=== PATIENT | male | born 1955 | race Asian ===

== ENCOUNTER 2017-12-19 02:50 | Emergency (ER) | payer OTHER ==
[~2017-12-19] VITALS: Ht 172.7 cm; Wt 66.2 kg
[~2017-12-19 02:50] MED LIST: CELLCEPT500 MG ORAL; NEORAL100 MG PO; PREDNISONE2.5 MG ORAL; UNOBMED
[2017-12-19 03:00] VITALS: BP 142/92
[2017-12-19 03:15] LABS: BASOPHILS % (AUTO) 0.5 % (0.0-2.0); EOSINOPHILS % (AUTO) 0.7 % (0.0-3.0); HEMATOCRIT 48.7 % (42.0-52.0); HEMOGLOBIN 16.6 G/DL (14.2-18.0); LYMPHOCYTES % (AUTO) 14.2 % (20.0-45.0); MEAN CORPUSCULAR VOLUME 94 FL (80-99); NEUTROPHILS % (AUTO) 78.5 % (45.0-75.0); PLATELET COUNT 170 K/UL (150-450); RED BLOOD COUNT 5.19 M/UL (4.70-6.10); RED CELL DISTRIBUTION WIDTH 11.8 % (11.6-14.8); WHITE BLOOD COUNT 9.1 K/UL (4.8-10.8)
[2017-12-19] MEDS ORDERED: Heparin 5000 units/ml inj IV ONE (03:15)
[2017-12-19] MEDS ORDERED: Heparin 25,000u/D5W 500ml 500 ML IV SCH (03:15)
--- NOTE | 2017-12-19 03:16 | Emergency Room Report ---
History of Present Illness General Chief Complaint: Chest Pain Source: Patient, Family Member, Medical Record Present Illness HPI This is 62-year-old Welsh speaking male. History is through Welsh speaking nurse. Patient presents with chief point of chest pain. Since this morning his been complaining of chest pain on and off. The worse chest pain started around 11 PM. He said he was diaphoretic and short of breath. Worse with lying flat and worse with exertion. Better with rest. Pain did not go away so he called 911. pain was 8 out of 10. No radiation. No nausea. EMS gave him nitroglycerin and aspirin. He is pain-free now. He has a history of CVA with left-sided weakness. Also history of renal failure status post renal transplant about 15 years ago. Allergies: Coded Allergies: No Known Allergies (Unverified , 03/26/16) Patient History Past Medical History: see triage record, old chart reviewed, HTN, renal disease Past Surgical History: other Pertinent Family History: none Social History: Denies: smoking Immunizations: other Reviewed Nursing Documentation: PMH: Agreed; PSxH: Agreed Nursing Documentation-PMH Hx Hypertension: Yes Hx Cancer: No Hx Gastrointestinal Problems: No Hx Dialysis: No - bilat kidney transp (15yrs ago) Hx Cerebrovascular Accident: Yes - stroke Review of Systems Eye: Denies: eye pain, blurred vision ENT: Denies: ear pain, nose congestion, throat swelling Respiratory: Denies: cough, shortness of breath Cardiovascular: Reports: chest pain; Denies: palpitations Gastrointestinal: Denies: abdominal pain, diarrhea, nausea, vomiting Musculoskeletal: Denies: back pain, joint pain Skin: Denies: rash Neurological: Denies: headache, numbness Endocrine: Denies: increased thirst, increased urine Hematologic/Lymphatic: Denies: easy bruising All Other Systems: negative except mentioned in HPI Physical Exam Vital Signs Date Time Temp Pulse Resp B/P (MAP) Pulse Ox O2 Delivery O2 Flow Rate FiO2 12/19/17 02:53 97.8 68 18 142/92 98 Room Air 97.9 vitals with high blood pressure Sp02 EP Interpretation: reviewed, normal General Appearance: well appearing, no apparent distress, alert Head: normocephalic, atraumatic Eyes: bilateral eye PERRL, bilateral eye EOMI ENT: hearing grossly normal, normal pharynx Neck: full range of motion, supple, no meningismus Respiratory: chest non-tender, lungs clear, normal breath sounds Cardiovascular #1: regular rate, rhythm, no murmur Gastrointestinal: normal bowel sounds, non tender, no mass, no organomegaly, no bruit, non-distended Musculoskeletal: back normal, normal range of motion Neurologic: alert, oriented x3, other - left sided weakness from previous cva Psychiatric: mood/affect normal Skin: warm/dry Procedures Critical Care Time Critical Care Time Critical care is mandated in this patient who presented with STEMI. Patient require my urgent intervention to attenuate the risks of metabolic collapse which may lead to cardiovascular collapse and . Critical care time is 35 minutes excluding any reportable procedure. Critical care time included evaluation, multiple reevaluation, looking at old charts, interpreting laboratory and diagnostic data, discussing case with patient and family and consultants, and charting. Medical Decision Making Diagnostic Impression: Primary Impression: STEMI (ST elevation myocardial infarction) Qualified Codes: I21.09 - ST elevation (STEMI) myocardial infarction involving other coronary artery of anterior wall ER Course Patient present with chest pain and has a STEMI of the anterior wall with recent physical changes. He is pain-free now. I discussed the case with Dr. Sabillon, chairman & co founder at [facility]. He accepted patient for transfer as a STEMI transfer. He agreed that no need for nitroglycerin since patient is pain-free. Agree with heparin bolus and heparin drip. Once Plavix 600 mg by mouth. Also wanted a full dose aspirin in total. We will transfer to [facility] for higher level of care. Family is agreeable. EKG Diagnostic Results Rate: normal Rhythm: NSR ST Segments: other - ST elevation anteriorly with inferior reciprocal changes. ASA given to the pt in ED: Yes Rhythm Strip Diag. Results Rhythm Strip Time: 03:32 EP Interpretation: yes Rate: 62 Rhythm: NSR, no PVC's, no ectopy Chest X-Ray Diagnostic Results Chest X-Ray Diagnostic Results : Chest X-Ray Ordered: Yes # of Views/Limited/Complete: 1 View Indication: Chest Pain EP Interpretation: Yes Interpretation: no consolidation, no effusion, no pneumothorax, no acute cardiopulmonary disease Impression: No acute disease Electronically Signed by: French Pittman MD Last Vital Signs Date Time Temp Pulse Resp B/P (MAP) Pulse Ox O2 Delivery O2 Flow Rate FiO2 4/20/18 02:53 97.8 68 18 142/92 98 Room Air 97.9 Status: improved Disposition: XFER SHT-TRM HOSP Condition: Serious Referrals: [facility],REFERRING (PCP) FRENCH PITTMAN M.D. Dec 19, 2017 03:16
[2017-12-19 03:27] LABS: ANION GAP 7 mmol/L (5-15); BLOOD UREA NITROGEN 16 mg/dL (7-18); CALCIUM 8.7 MG/DL (8.5-10.1); CARBON DIOXIDE 25 MMOL/L (21-32); CHLORIDE 104 MMOL/L (98-107); POTASSIUM 3.5 MMOL/L (3.5-5.1); SODIUM 136 MMOL/L (136-145)
[2017-12-19] MEDS ORDERED: Aspirin Baby 81mg ONE (03:34)
[2017-12-19 03:38] VITALS: BP 113/85
[2017-12-19 03:42] LABS: ALANINE AMINOTRANSFERASE 55 U/L (12-78); ALBUMIN 3.6 G/DL (3.4-5.0); ALBUMIN/GLOBULIN RATIO 0.9 (1.0-2.7); ALKALINE PHOSPHATASE 76 U/L (46-116); ASPARTATE AMINO TRANSFERASE 28 U/L (15-37); BILIRUBIN,TOTAL 0.4 MG/DL (0.2-1.0); CKMB 3.5 NG/ML (0.0-3.6); CREATINE KINASE 65 U/L (26-308)
[2017-12-19] MEDS ORDERED: Aspirin Baby 81mg ORAL ONE (03:45)
[2017-12-19 03:50] VITALS: BP 113/85
--- NOTE | 2017-12-19 18:44 | Diagnostic Imaging Report ---
Indication: Chest pain Technique: XRAY Chest 1v Comparison: 03/29/2016 Findings: Stable cardiomegaly. Atherosclerotic calcifications again noted in the aortic arch. Mediastinal contours are sharp. There is unchanged elevation of the right hemidiaphragm. There is no focal airspace consolidation, pleural effusion or pneumothorax. No acute osseous abnormality seen. Impression: No radiographic evidence of acute cardiopulmonary disease. Stable cardiomegaly.
== END 2017-12-19 03:50 | disposition short-term general hospital (02) ==
LOC: EDBD 02:50 → EMR 03:00
DX: I21.3 ST elevation (STEMI) myocardial infarction of unspecified site (principal); I10 Essential (primary) hypertension; Z86.73 Personal history of transient ischemic attack (TIA), and cerebral infarction without residual deficits
CPT/HCPCS: 36415; 71045; 80053; 82550; 82553; 83880; 84484; 85025; 85610; 85730; 93005; 96374; 96375; 99291; J1644

== ENCOUNTER 2018-11-01 03:47 | Inpatient (IN) | payer OTHER ==
[~2018-11-01] VITALS: Ht 170.2 cm; Wt 72.6 kg
[2018-11-01 03:47] VITALS: BP 124/73
--- NOTE | 2018-11-01 03:47 | NUR ---
ED Nurse Note: Pt was BIBA from home, c/o chest pain today, but pt pointed on upper abdomen, 02/08. Pt is A/O X 4. Hr 50. Pt had Hx of CVA with left side weakness. Pt has an old HD AV shunt on right forearm which was no longer used accoding to pt's family, pt states that had HX of kidney transplant. Skin intact. Pt's at bed side. waitng for orders.
[2018-11-01] MEDS ORDERED: Morphine Sulfate 2mg/ml Inj(IV/IM USE ONLY) IVP ONE (04:00)
--- NOTE | 2018-11-01 04:05 | NUR ---
ED Nurse Note: Blood sample collected and sent to lab.
[2018-11-01] MEDS ORDERED: AMIODARONE HCL200 MG ORAL (04:08)
[2018-11-01] MEDS ORDERED: MYCOPHENOLATE250 MG PO (04:08)
[2018-11-01] MEDS ORDERED: ASPIR 8181 MG ORAL (04:08)
[2018-11-01] MEDS ORDERED: ELIQUIS5 MG PO (04:08)
[2018-11-01] MEDS ORDERED: DIPHENOXYLATE-1 EACH PO (04:08)
[2018-11-01] MEDS ORDERED: CARVEDILOL6.25 MG ORAL (04:08)
[2018-11-01] MEDS ORDERED: CRESTOR10 M2 ORAL (04:08)
[2018-11-01] MEDS ORDERED: PREDNISOLO15 MG/5 M1 ORAL (04:08)
[2018-11-01] MEDS ORDERED: LISINOPRIL2.5 MG ORAL (04:08)
[2018-11-01] MEDS ORDERED: OMEPRAZOLE40 M1 ORAL (04:08)
[2018-11-01 04:27] LABS: HEMATOCRIT 44.5 % (42.0-52.0); HEMOGLOBIN 14.8 G/DL (14.2-18.0); MEAN CORPUSCULAR VOLUME 94 FL (80-99); PLATELET COUNT 183 K/UL (150-450); RED BLOOD COUNT 4.72 M/UL (4.70-6.10); RED CELL DISTRIBUTION WIDTH 12.1 % (11.6-14.8); WHITE BLOOD COUNT 9.3 K/UL (4.8-10.8)
--- NOTE | 2018-11-01 04:32 | NUR ---
ED Nurse Note: Meds given as ordered.
[2018-11-01 04:38] LABS: ANION GAP 7 mmol/L (5-15); BLOOD UREA NITROGEN 27 mg/dL (7-18); CALCIUM 8.8 MG/DL (8.5-10.1); CARBON DIOXIDE 30 MMOL/L (21-32); CHLORIDE 103 MMOL/L (98-107); CREATININE 1.2 MG/DL (0.55-1.30); POTASSIUM 4.1 MMOL/L (3.5-5.1); SODIUM 140 MMOL/L (136-145)
[2018-11-01 04:53] LABS: ALANINE AMINOTRANSFERASE 77 U/L (12-78); ALBUMIN 3.4 G/DL (3.4-5.0); ALBUMIN/GLOBULIN RATIO 0.9 (1.0-2.7); ALKALINE PHOSPHATASE 107 U/L (46-116); ASPARTATE AMINO TRANSFERASE 40 U/L (15-37); BILIRUBIN,TOTAL 1.4 MG/DL (0.2-1.0); CKMB 1.1 NG/ML (0.0-3.6); CREATINE KINASE 41 U/L (26-308)
--- NOTE | 2018-11-01 05:00 | Diagnostic Imaging Report ---
EXAM: XR Chest, 1 View CLINICAL HISTORY: CP TECHNIQUE: Frontal view of the chest. COMPARISON: Chest radiograph dated 12/19/17. FINDINGS: Lungs: Moderate elevation of the right hemidiaphragm with adjacent right basilar atelectasis. This is mildly more prominent than the previous exam. Pleural space: Unremarkable. No pneumothorax. Heart: Unremarkable. No cardiomegaly. Mediastinum: Unremarkable. Bones/joints: Unremarkable. Vasculature: Calcification of the aortic arch. IMPRESSION: 1. No radiographically evidence of acute cardiopulmonary disease. 2. Elevation right hemidiaphragm with adjacent right basilar atelectasis.
--- NOTE | 2018-11-01 05:10 | Emergency Room Report ---
History of Present Illness General Chief Complaint: Chest Pain Source: Patient, Family Member Present Illness HPI 62-year-old male presents ED for evaluation. Brought in by EMS complaining of chest pain. Patient is Yakut speaking. Patient states that patient's been having indigestion symptoms for the last few days but started tonight he started to have chest pain. Sharp, 7 out of 10, nonradiating. Was given aspirin and nitroglycerin by EMS with some improvement. Per patient had a kidney transplant several years ago. Is currently compliant with his medications. No longer receives dialysis. Denies alcohol or drug use. No other aggravating relieving factors. Denies any other associated symptoms Allergies: Coded Allergies: No Known Allergies (Unverified , 03/26/16) Patient History Past Medical History: HTN, [place], CVA/TIA, renal disease Past Surgical History: other - kidney transplant Pertinent Family History: none Social History: Denies: smoking, alcohol use, drug use Immunizations: UTD Reviewed Nursing Documentation: PMH: Agreed; PSxH: Agreed Nursing Documentation-PMH Hx Hypertension: Yes Hx Cancer: No Hx Gastrointestinal Problems: No Hx Dialysis: No - bilat kidney transp (15yrs ago) Hx Cerebrovascular Accident: Yes - stroke Review of Systems All Other Systems: negative except mentioned in HPI Physical Exam Vital Signs Date Time Temp Pulse Resp B/P (MAP) Pulse Ox O2 Delivery O2 Flow Rate FiO2 11/01/18 03:43 97.2 54 18 156/92 100 Room Air Sp02 EP Interpretation: reviewed, normal General Appearance: no apparent distress, alert, GCS 15, non-toxic Head: normocephalic, atraumatic Eyes: bilateral eye normal inspection, bilateral eye PERRL ENT: hearing grossly normal, normal pharynx, no angioedema, normal voice Neck: full range of motion, supple/symm/no masses Respiratory: chest non-tender, lungs clear, normal breath sounds, speaking full sentences Cardiovascular #1: regular rate, rhythm, no edema Cardiovascular #2: 2+ carotid (R), 2+ carotid (L), 2+ radial (R), 2+ radial (L) , 2+ dorsalis pedis (R), 2+ dorsalis pedis (L) Gastrointestinal: normal bowel sounds, non tender, soft, non-distended, no guarding, no rebound Rectal: deferred Genitourinary: normal inspection, no CVA tenderness Musculoskeletal: back normal, gait/station normal, normal range of motion, non- tender Neurologic: alert, oriented x3, responsive, motor strength/tone normal, sensory intact, speech normal Psychiatric: judgement/insight normal, memory normal, mood/affect normal, no suicidal/homicidal ideation Reflexes: 3+ bicep (R), 3+ bicep (L), 3+ tricep (R), 3+ tricep (L), 3+ knee (R) , 3+ knee (L) Skin: normal color, no rash, warm/dry, well hydrated Lymphatic: no adenopathy Medical Decision Making Diagnostic Impression: Primary Impression: ACS (acute coronary syndrome) Additional Impression: Renal transplant disorder ER Course Hospital Course 62-year-old male presents ED complaining of chest pain. h/o kidney transplant Differential diagnoses include: [place]/unstable angina, contusion, muscle strain, PTX, rib fracture Clinical course Patient placed on stretcher. on personnel monitor. After initial history and physical I ordered labs, EKG, chest x-ray, morphine labs reviewed- no leukocytosis, hb/hct stable, BUN/Cr 27/1.2, trop 0.002 EKG - NSR, no acute ischemic changes interpreted by me Chest x-ray- some atelectasis noted Given significant cardiac risk factors with presentation patient should be admitted for inpatient admission. However given history of kidney transplant patient will require transfer to appropriate facility with transplant services. I spoke to patient's log yard manager Dr David Cason who agrees patient should be transferred to [facility], or a facility with transplant services insurance unable to facilitate transfer. given normal creatinine, patient will be admitted here I. I feel this is a highly complex case requiring extensive working including EKG/Rhythm strip, Xray/CT/US, Blood/urine lab work, repeat exams while in ED, and administration of strong opiates/narcotics for pain control, admission to hospital or close patient follow up. Diagnosis - ACS, renal transplant disorder admitted to telemetry in serious condition Labs Test 11/01/18 04:17 White Blood Count 9.3 K/UL (4.8-10.8) Red Blood Count 4.72 M/UL (4.70-6.10) Hemoglobin 14.8 G/DL (14.2-18.0) Hematocrit 44.5 % (42.0-52.0) Mean Corpuscular Volume 94 FL (80-99) Mean Corpuscular Hemoglobin 31.4 PG (27.0-31.0) Mean Corpuscular Hemoglobin Concent 33.3 G/DL (32.0-36.0) Red Cell Distribution Width 12.1 % (11.6-14.8) Platelet Count 183 K/UL (150-450) Mean Platelet Volume 6.4 FL (6.5-10.1) Neutrophils (%) (Auto) % (45.0-75.0) Lymphocytes (%) (Auto) % (20.0-45.0) Monocytes (%) (Auto) % (1.0-10.0) Eosinophils (%) (Auto) % (0.0-3.0) Basophils (%) (Auto) % (0.0-2.0) Prothrombin Time 10.5 SEC (9.30-11.50) Prothromb Time International Ratio 1.0 (0.9-1.1) Activated Partial Thromboplast Time 30 SEC (23-33) Sodium Level 140 MMOL/L (136-145) Potassium Level 4.1 MMOL/L (3.5-5.1) Chloride Level 103 MMOL/L (98-107) Carbon Dioxide Level 30 MMOL/L (21-32) Anion Gap 7 mmol/L (5-15) Blood Urea Nitrogen 27 mg/dL (7-18) Creatinine 1.2 MG/DL (0.55-1.30) Estimat Glomerular Filtration Rate > 60 mL/min (>60) Glucose Level 183 MG/DL (74-106) Calcium Level 8.8 MG/DL (8.5-10.1) Total Bilirubin 1.4 MG/DL (0.2-1.0) Direct Bilirubin 1.0 MG/DL (0.0-0.3) Aspartate Amino Transf (AST/SGOT) 40 U/L (15-37) Alanine Aminotransferase (ALT/SGPT) 77 U/L (12-78) Alkaline Phosphatase 107 U/L (46-116) Total Creatine Kinase 41 U/L (26-308) Creatine Kinase MB 1.1 NG/ML (0.0-3.6) Creatine Kinase MB Relative Index 2.6 Troponin I 0.002 ng/mL (0.000-0.056) Pro-B-Type Natriuretic Peptide 142 pg/mL (0-125) Total Protein 7.2 G/DL (6.4-8.2) Albumin 3.4 G/DL (3.4-5.0) Globulin 3.8 g/dL Albumin/Globulin Ratio 0.9 (1.0-2.7) EKG Diagnostic Results Rate: normal Rhythm: NSR ST Segments: no acute changes ASA given to the pt in ED: No - given by ems Rhythm Strip Diag. Results EP Interpretation: yes Rhythm: NSR, no PVC's, no ectopy Chest X-Ray Diagnostic Results Chest X-Ray Diagnostic Results : Chest X-Ray Ordered: Yes # of Views/Limited/Complete: 1 View Indication: Chest Pain EP Interpretation: Yes Interpretation: no consolidation, no effusion, no pneumothorax, no acute cardiopulmonary disease Impression: No acute disease Electronically Signed by: Electronically signed by Jorge Ross MD Last Vital Signs Date Time Temp Pulse Resp B/P (MAP) Pulse Ox O2 Delivery O2 Flow Rate FiO2 11/01/18 03:47 51 18 Room Air 11/01/18 03:43 97.2 156/92 100 Status: improved Disposition: XFER SHT-TRM HOSP Condition: Serious Referrals: NON PHYSICIAN (PCP) Jorge Ross MD Nov 01, 2018 05:10
[2018-11-01] MEDS ORDERED: Aspirin Baby 81mg ORAL ONE (05:15)
--- NOTE | 2018-11-01 05:23 | NUR ---
Clinicals has been faxed over to [phone] and received @ [phone]
[2018-11-01 06:20] VITALS: BP 104/72
--- NOTE | 2018-11-01 06:35 | NUR ---
ED Nurse Note: Pt is waiting for transfer to [facility] for insurance reason. Pt is A/O X 4. VSS. Will continue to monitor.
[2018-11-01 07:10] VITALS: BP 114/72
--- NOTE | 2018-11-01 07:10 | NUR ---
HAND-OFF: Report given to Geno/RN for continue care. Breakfast/ Renal diet was ordered.
--- NOTE | 2018-11-01 07:11 | NUR ---
ED Nurse Note: pt. on bed resting with no s/s of acute distress noted. family at the bedside
--- NOTE | 2018-11-01 07:39 | NUR ---
ED Nurse Note: DR. CRISTELA NGUYEN AT THE BED SIDE SPEAKING TO THE PATIENT AND FAMILY MEMBER
--- NOTE | 2018-11-01 08:17 | NUR ---
ED Nurse Note: telephone report given to MARCIAL Wyatt
--- NOTE | 2018-11-01 08:47 | NUR ---
ED Nurse Note: pt. trasnported to Tele with no s/s of acute distress attached to cafeteria monitor. Endorsed to MARCIAL Awan the belongings list
[2018-11-01 08:50] VITALS: BP 132/82
--- NOTE | 2018-11-01 08:50 | NUR ---
NURSE NOTES: Received report from MARCIAL Lora. Patient transferred from ER to tele via gurney. Patient able to ambulate to bed with health care assistant. Left side weakness due to history of stroke. Patient on room air, AOX4, vital sign at the time of arrival 132/82, HR 52, T 96.8, 95%, 14, pain 3/10 on epigastric area. cafeteria monitor on, belonging list checked with RN, remained with patient. IV site on left FA 22G, asymptomatic, patent, intact. Per patient, AV shunt on right side has not been used for 15yrs after kidney transplant. Patient stated got bilateral kidney transplant about 15yrs ago. Bed in lowest position, side rails upx2, call light within reach. Will continue to monitor.
[2018-11-01] MEDS ORDERED: Albuterol/Ipratropium 3ml neb HHN PRN (09:15)
[2018-11-01] MEDS ORDERED: Enalaprilat 2.5mg/2ml Inj IV PRN (09:15)
[2018-11-01] MEDS ORDERED: Morphine Sulfate 2mg/ml Inj(IV/IM USE ONLY) IVP PRN (09:15)
[2018-11-01] MEDS ORDERED: Miralax 17gm pkt ORAL PRN (09:15)
[2018-11-01] MEDS ORDERED: dilTIAZem HCl 25mg/5ml Inj IV PRN (09:15)
[2018-11-01] MEDS ORDERED: Nitroglycerin Subl 0.4mg tab SL PRN (09:15)
[2018-11-01] MEDS ORDERED: Ketorolac 30mg Inj IV PRN (09:15)
--- NOTE | 2018-11-01 09:45 | History and Physical Report ---
DATE OF ADMISSION: 11/01/2018 TIME SEEN: 8 a.m. CONSULTANTS: 1. Bassam Hanks M.D. 2. Adrian Segura M.D. CHIEF COMPLAINT: Chest pain, shortness of breath, ACS. BRIEF HISTORY: This is a 62-year-old male, who lives at home, presents with chest pain, substernal, for three days, intermittent, slight shortness of breath. No loss of consciousness. No dizziness. The patient came to [facility], diagnosed with the above, and being admitted to telemetry for further care. Currently, calm in bed, in the ER. No complaint. REVIEW OF SYSTEMS: Slight chest pain. Slight shortness of breath. No nausea, vomiting, or diarrhea. PAST MEDICAL HISTORY: Includes history of diabetes. PAST SURGICAL HISTORY: None. ALLERGIES: Denies. MEDICATIONS: Include aspirin and morphine. SOCIAL HISTORY: No smoking. No alcohol. No intravenous drug abuse. FAMILY HISTORY: Noncontributory. PHYSICAL EXAMINATION: GENERAL: Calm in bed, oriented x3, no acute distress. VITAL SIGNS: Temperature is 98 degrees, pulse 50, respirations 18, and blood pressure 114/72. CARDIOVASCULAR: No murmur. LUNGS: Distant, clear. ABDOMEN: Bowel sounds positive. Nontender. Nondistended. EXTREMITIES: No cyanosis or edema. NEUROLOGIC: The patient moves all extremities, slightly weak. LABORATORY DATA: Labs at this time show CBC is normal. BUN 27, glucose 183. Troponin 0.002. INR is 1.0 and PTT is 30. ASSESSMENT: 1. Chest pain, 2. ACS. 3. Shortness of breath. 4. Diabetes. PLAN: 1. Blood sugar and pain control. 2. Dietary followup. 3. Troponin q. 8 h. x3. 4. EKG in a.m. 5. Resume home medications. 6. I will continue to follow this patient. 7. CBC and BMP in the morning. Paul Boilvar D.O. DR: [facility] JOB#: [id number] CC:
[2018-11-01] MEDS: Aspirin Baby 81mg ORAL SCH (10:51)
--- NOTE | 2018-11-01 13:18 | Consultation ---
History of Present Illness General Date patient seen: Nov 01, 2018 Chief Complaint: Chest Pain Present Illness HPI 62 year old male with hx of renal transplant, HTN, presented to Er with CC of mostly GI symptoms, Epigastric pain. He had episode of nausea and vomiting. He is admitted to telemetry to rule ACS. Allergies: Coded Allergies: No Known Allergies (Unverified , 03/26/16) Medication History Scheduled Amiodarone Hcl* (Cordarone*), 200 MG ORAL TWICE A DAY, (Reported) Aspirin* (Aspir 81*), 81 MG ORAL DAILY, (Reported) Carvedilol* (Carvedilol*), 6.25 MG ORAL EVERY 12 HOURS, (Reported) Cyclosporine (Neoral), 150 MG PO BEDTIME, (Reported) Lisinopril* (Lisinopril*), 2.5 MG ORAL DAILY, (Reported) Mycophenolate Mofetil (Cellcept), 1,500 MG ORAL BEDTIME, (Reported) Omeprazole (Omeprazole), 40 MG ORAL DAILY, (Reported) Prednisone* (Prednisone*), 5 MG ORAL QHS, (Reported) Rosuvastatin Calcium* (Crestor*), 5 MG ORAL DAILY, (Reported) Miscellaneous Medications Apixaban (Eliquis), 5 MG PO, (Reported) Diphenoxylate Hcl/Atropine (Diphenoxylate-Atropine Tablet), 1 EACH PO, (Reported ) Mycophenolate Mofetil (Mycophenolate Mofetil), 250 MG PO, (Reported) Prednisolone* (Prelone*), 5 MG ORAL, (Reported) Unable to Obtain Medications (Unable To Obtain Meds), (Reported) Patient History Healthcare decision maker ; Lucila Merrill Resuscitation status Full Code Advanced Directive on File Past Medical/Surgical History Past Medical/Surgical History: (1) History of renal transplant (2) ACS (acute coronary syndrome) Review of Systems All Other Systems: negative except mentioned in HPI Physical Exam General Appearance: WD/WN Lines, tubes and drains: peripheral HEENT: normocephalic, atraumatic Neck: non-tender, normal alignment Respiratory/Chest: chest wall non-tender, lungs clear Abdomen: normal bowel sounds Genitourinary/Rectal: normal genital exam Last 24 Hour Vital Signs Date Time Temp Pulse Resp B/P (MAP) Pulse Ox O2 Delivery O2 Flow Rate FiO2 3/3/19 09:48 Room Air 11/01/18 09:06 48 11/01/18 09:00 98.2 50 18 114/72 100 Room Air 11/01/18 08:50 96.8 52 14 132/82 (99) 95 11/01/18 07:10 98.2 50 18 114/72 100 Room Air 11/01/18 06:20 97.1 52 18 104/72 100 Room Air 11/01/18 05:02 97.1 11/01/18 03:47 51 18 Room Air 11/01/18 03:47 97.7 51 18 124/73 100 Room Air 11/01/18 03:43 97.2 54 18 156/92 100 Room Air Intake and Output 10/31/18 11/01/18 19:00 07:00 Intake Total 0 ml Balance 0 ml Intake Oral 0 ml Laboratory Tests Test 11/01/18 04:17 11/01/18 10:04 White Blood Count 9.3 K/UL (4.8-10.8) Red Blood Count 4.72 M/UL (4.70-6.10) Hemoglobin 14.8 G/DL (14.2-18.0) Hematocrit 44.5 % (42.0-52.0) Mean Corpuscular Volume 94 FL (80-99) Mean Corpuscular Hemoglobin 31.4 PG (27.0-31.0) H Mean Corpuscular Hemoglobin Concent 33.3 G/DL (32.0-36.0) Red Cell Distribution Width 12.1 % (11.6-14.8) Platelet Count 183 K/UL (150-450) Mean Platelet Volume 6.4 FL (6.5-10.1) L Neutrophils (%) (Auto) % (45.0-75.0) Lymphocytes (%) (Auto) % (20.0-45.0) Monocytes (%) (Auto) % (1.0-10.0) Eosinophils (%) (Auto) % (0.0-3.0) Basophils (%) (Auto) % (0.0-2.0) Differential Total Cells Counted 100 Neutrophils % (Manual) 92 % (45-75) H Lymphocytes % (Manual) 6 % (20-45) L Monocytes % (Manual) 2 % (1-10) Eosinophils % (Manual) 0 % (0-3) Basophils % (Manual) 0 % (0-2) Band Neutrophils 0 % (0-8) Platelet Estimate Adequate Platelet Morphology Normal Red Blood Cell Morphology Normal Prothrombin Time 10.5 SEC (9.30-11.50) Prothromb Time International Ratio 1.0 (0.9-1.1) Activated Partial Thromboplast Time 30 SEC (23-33) Sodium Level 140 MMOL/L (136-145) Potassium Level 4.1 MMOL/L (3.5-5.1) Chloride Level 103 MMOL/L (98-107) Carbon Dioxide Level 30 MMOL/L (21-32) Anion Gap 7 mmol/L (5-15) Blood Urea Nitrogen 27 mg/dL (7-18) H Creatinine 1.2 MG/DL (0.55-1.30) Estimat Glomerular Filtration Rate > 60 mL/min (>60) Glucose Level 183 MG/DL (74-106) H Calcium Level 8.8 MG/DL (8.5-10.1) Total Bilirubin 1.4 MG/DL (0.2-1.0) H Direct Bilirubin 1.0 MG/DL (0.0-0.3) H Aspartate Amino Transf (AST/SGOT) 40 U/L (15-37) H Alanine Aminotransferase (ALT/SGPT) 77 U/L (12-78) Alkaline Phosphatase 107 U/L (46-116) Total Creatine Kinase 41 U/L (26-308) Creatine Kinase MB 1.1 NG/ML (0.0-3.6) Creatine Kinase MB Relative Index 2.6 Troponin I 0.002 ng/mL (0.000-0.056) 0.011 ng/mL (0.000-0.056) Pro-B-Type Natriuretic Peptide 142 pg/mL (0-125) H Total Protein 7.2 G/DL (6.4-8.2) Albumin 3.4 G/DL (3.4-5.0) Globulin 3.8 g/dL Albumin/Globulin Ratio 0.9 (1.0-2.7) L Height (Feet): 5 Height (Inches): 7.00 Weight (Pounds): 160 Medications Current Medications Medications (Trade) Dose Ordered Sig/Birdie Route PRN Reason Start Time Stop Time Status Last Admin Dose Admin Acetaminophen (Tylenol) 650 mg Q4H PRN ORAL T>100.5 11/01/18 09:15 12/01/18 09:14 Albuterol/ Ipratropium (Albuterol/ Ipratropium) 3 ml Q4H PRN HHN Shortness of Breath 11/01/18 09:15 11/06/18 09:14 Amiodarone HCl (Cordarone) 200 mg TWICE A DAY ORAL 11/01/18 18:00 12/01/18 17:59 Aspirin (ASA) 162 mg DAILY ORAL 11/01/18 10:00 12/01/18 09:59 11/01/18 10:51 Carvedilol (Coreg) 6.25 mg EVERY 12 HOURS ORAL 11/01/18 21:00 12/01/18 20:59 Diltiazem HCl (Cardizem) 10 mg EVERY HOUR PRN IV heart rate more than 120bpm 11/01/18 09:15 12/01/18 09:14 Enalaprilat (Vasotec) 2.5 mg Q6H PRN IV SBP > 160mmHg 11/01/18 09:15 12/01/18 09:14 Heparin Sodium (Porcine) (Heparin 5000 units/ml) 5,000 units EVERY 12 HOURS SUBQ 11/01/18 21:00 12/01/18 20:59 Ketorolac Tromethamine (Toradol 30mg) 30 mg Q6H PRN IV Moderate Pain (Pain Scale 4-6) 11/01/18 09:15 11/06/18 09:14 Morphine Sulfate (Morphine Sulfate) 2 mg Q4H PRN IVP Severe Pain (Pain Scale 7-10) 11/01/18 09:15 11/08/18 09:14 Nitroglycerin (Ntg) 0.4 mg Q5MIN X 3 DOSES PRN SL Prn Chest Pain 11/01/18 09:15 12/01/18 09:14 Ondansetron HCl (Zofran) 4 mg Q6H PRN IVP Nausea & Vomiting 11/01/18 09:15 12/01/18 09:14 Polyethylene Glycol (Miralax) 17 gm DAILYPRN PRN ORAL Constipation 11/01/18 09:15 12/01/18 09:14 Temazepam (Restoril) 15 mg HSPRN PRN ORAL Insomnia 11/01/18 21:00 11/08/18 20:59 Assessment/Plan Problem List: (1) ACS (acute coronary syndrome) ICD Codes: I24.9 - Acute ischemic heart disease, unspecified SNOMED: 711757962 (2) Gastritis ICD Codes: K29.70 - Gastritis, unspecified, without bleeding SNOMED: 1444039 (3) Chronic atrial fibrillation ICD Codes: I48.2 - Chronic atrial fibrillation SNOMED: 883749665 (4) Chronic anticoagulation ICD Codes: Z79.01 - [facility]CI (current) use of anticoagulants SNOMED: 446308715 (5) History of renal transplant ICD Codes: Z94.0 - Kidney transplant status SNOMED: 06332768, 926225474 Assessment/Plan symptomatic treatment respiratory treatment check electrolytes check troponin echo cardio Bassam Hanks MD Nov 01, 2018 13:18
--- NOTE | 2018-11-01 15:00 | NUR ---
NURSE NOTES: Patient stated patient getting medication at [facility] which located [address] [place] [address] in [facility]. gave a list of medication, cyclosporine [id number] , syclosporine 25mg x2tab, cellcept 250mg x3tab, prednisone 5mg.
[2018-11-01] MEDS: Amiodarone 200mg tab ORAL SCH (17:25)
--- NOTE | 2018-11-01 17:42 | General Progress Note ---
Progress Note Progress Note [id number] full consult dictated Viridiana Wilde MD Nov 01, 2018 17:42
--- NOTE | 2018-11-01 19:30 | NUR ---
Got report from Lv Orr. Pt in stable condition. Denies any pain. No s/s of distress noted. Pt resting in bed comfortably. Bed in low and locked position, call light within reach, bedside table within reach. continue to monitor.
[2018-11-01 20:00] VITALS: BP 125/76
--- NOTE | 2018-11-01 20:14 | NUR ---
HAND-OFF: Report given to MARCIAL Hastings.
[2018-11-01] MEDS: Carvedilol 6.25mg Tab ORAL SCH (21:00)
[2018-11-01] MEDS ORDERED: Mycophenolate 250mg cap ORAL SCH (21:00)
[2018-11-01] MEDS: cycloSPORINE 25mg cap ORAL SCH (21:09)
[2018-11-01] MEDS: cycloSPORINE 100mg cap ORAL SCH (21:10)
[2018-11-01] MEDS: Heparin 5000 units/ml inj SUBQ SCH (21:16)
--- NOTE | 2018-11-01 21:30 | Consultation ---
DATE OF CONSULTATION: 11/01/2018 NEPHROLOGY CONSULTATION CONSULTING PHYSICIAN: Viridiana Wilde M.D. REFERRING PHYSICIAN: Paul Bolivar D.O. REASON FOR CONSULTATION: Management of kidney disease and history of renal transplant. HISTORY OF PRESENT ILLNESS: The patient is a 62-year-old male with past medical history significant for history of cadaveric renal transplant about 10 years ago. He has history of hypertension, dyslipidemia, and history of CAD, who presented to [facility] complaining of epigastric pain, nausea, and vomiting. He also complained of left quadrant pain. The patient was consequently admitted with possible acute coronary syndrome due to chest pain was also reported in the ER. I was called for management of renal disease and electrolyte imbalance. PAST MEDICAL HISTORY: 1. History of chronic kidney disease, on dialysis. Off dialysis for the past 10 years after he received cadaveric renal transplant. 2. History of hypertension. 3. History of dyslipidemia. 4. History of CAD. PAST SURGICAL HISTORY: History of renal transplant. HOME MEDICATIONS: Includin. Including amiodarone 200 mg daily. 2. Aspirin 81 mg daily. 3. Carvedilol 6.25 mg daily. 4. Cyclosporine 150 mg p.o. daily. 5. Lisinopril 2.5 mg daily. 6. CellCept 1500 mg at bedtime. 7. Omeprazole 40 mg daily. 8. Prednisone 5 mg daily. 9. Crestor 5 mg daily. 10. Eliquis 5 mg daily. ALLERGIES: Not known drug allergies. SOCIAL HISTORY: He lives at home. There is no history of tobacco, alcohol, or drug use. REVIEW OF SYSTEMS: GENERAL: He is complaining of generalized weakness. Denies any fever, chills, or night sweats. HEAD AND NECK: Denies any dysphagia, odynophagia, blurry vision, headache, or neck stiffness. PULMONARY: Mild shortness of breath. No cough. No sputum. CARDIOVASCULAR: Currently, denies any chest pain or palpitations. GASTROINTESTINAL: Had nausea and vomiting, which resolved by this time. GENITOURINARY: Denies any dysuria, frequency, or hematuria. MUSCULOSKELETAL: Denies any weakness or numbness. PHYSICAL EXAMINATION: VITAL SIGNS: The patient had temperature of 98 degrees, blood pressure of 114/72, pulse rate of 48, and respiratory rate of 18. HEAD AND NECK: No JVP. No LAD. No thyromegaly. HEENT: Extraocular movements intact. Pupils are reactive to light and accommodation. LUNGS: Clear to auscultation. CARDIAC: Regular rate and rhythm. S1 and S2. No murmur. No rub. ABDOMEN: Soft, nontender, and nondistended. EXTREMITIES: No edema. No clubbing. No cyanosis. LABORATORY DATA: The patient had WBC count of 9.2, hemoglobin of 14.8, hematocrit of 44, and platelet count of 183,000. Chemistry revealed sodium 140, potassium 4.1, chloride 103, bicarb 30, BUN of 27, creatinine of 1.2, and glucose of 183. Total bilirubin of 1.4. of 1. AST of 40 and ALT of 77. BNP of 114. There is no UA. ASSESSMENT AND PLAN: 1. History of cadaveric renal transplant. Function is within normal limits, but I believe the patient is dehydrated most likely as a result of intractable nausea and vomiting. 2. Acute coronary syndrome. 3. Dyslipidemia. 4. Coronary artery disease. Plan to the start the patient on hydration. Continue with cephalosporin and CellCept and monitoring renal function and electrolytes closely. Obtain UA. . At the end, I would like to thank, Dr. Paul Bolivar, for allowing me to participate in the care of this patient. Viridiana Wilde M.D. DR: STEPHANIE JOB#: [id number] CC:
[2018-11-01 22:58] LABS: APPEARANCE,URINE CLEAR; BILIRUBIN, URINE NEGATIVE (NEGATIVE); COLOR,URINE BROWN; GLUCOSE, URINE (UA) NEGATIVE (NEGATIVE); KETONES,URINE NEGATIVE (NEGATIVE); LEUKOCYTE ESTERASE ,URINE 2+ (NEGATIVE); NITRITE,URINE NEGATIVE (NEGATIVE); PH,URINE 7 (4.5-8.0); PROTEIN,URINE NEGATIVE (NEGATIVE); UROBILINOGEN,URINE 8 MG/DL (0.0-1.0)
[2018-11-02] VITALS: BP 129/74
[2018-11-02 04:00] VITALS: BP 133/74
--- NOTE | 2018-11-02 07:06 | NUR ---
NURSE NOTES: Received report from MARCIAL Hastings. Patient in bed resting, no active s/s cardiac, respiratory distress noticed at this time. Patient on room air, SB with HR 51. Denies pain at this time. Patient AOX4, IV on left 22 G FA, asymptomatic, patent, intact. Endorsed urine collected and sent to lab. Bed in lowest position, side rails upx2, call light within reach. Will continue to monitor.
--- NOTE | 2018-11-02 07:15 | NUR ---
HAND-OFF: Report given to michelle chatterjee. endorsed plan of care.
[2018-11-02 08:00] VITALS: BP 113/74
--- NOTE | 2018-11-02 08:03 | NUR ---
CASE MANAGEMENT:REVIEW 62 YR OLD MALE BIBA FROM HOME CC; CHEST AND ABDOMINAL PAIN. NAUSEA AND VOMITING PMH: ME 8 MONTHS AGO. CVA. KIDNEY TRANSPLANT SI: ACUTE CORONARY SYNDROME 97.1 54 18 156/92 100% ON RA BUN+27 GLUCOSE+183 TBILI+1.4 DBILI+1.0 TROPONIN(-) IS: IV MORPHINE X1 ASA PO X1 CXR : TO TELEMETRY IS: PREDNISONE PO QD COREG PO Q12 HEPARIN SQ Q12 CYCLOSPORINE PO QHS CELLCEPT PO QHS AMIODARONE PO BID ASA PO QD PLAN: 2DECHO SERIAL TROPONIN INTERQUAL
[2018-11-02] MEDS: Amiodarone 200mg tab ORAL SCH ×3 (08:10→17:33)
[2018-11-02] MEDS: Aspirin Baby 81mg ORAL SCH (08:10)
[2018-11-02] MEDS: Heparin 5000 units/ml inj SUBQ SCH ×2 (08:12→21:24)
[2018-11-02] MEDS: Carvedilol 6.25mg Tab ORAL SCH ×2 (08:21→21:00)
[2018-11-02 08:46] LABS: BASOPHILS % (AUTO) 0.9 % (0.0-2.0); EOSINOPHILS % (AUTO) 1.1 % (0.0-3.0); HEMATOCRIT 43.5 % (42.0-52.0); HEMOGLOBIN 14.5 G/DL (14.2-18.0); LYMPHOCYTES % (AUTO) 17.3 % (20.0-45.0); MEAN CORPUSCULAR VOLUME 96 FL (80-99); MONOCYTES % (AUTO) 9.7 % (1.0-10.0); PLATELET COUNT 172 K/UL (150-450); RED BLOOD COUNT 4.55 M/UL (4.70-6.10); RED CELL DISTRIBUTION WIDTH 12.3 % (11.6-14.8)
[2018-11-02 09:04] LABS: ANION GAP 11 mmol/L (5-15); BLOOD UREA NITROGEN 23 mg/dL (7-18); CALCIUM 8.6 MG/DL (8.5-10.1); CARBON DIOXIDE 23 MMOL/L (21-32); CHLORIDE 106 MMOL/L (98-107); CHOLESTEROL 137 MG/DL (< 200); HDL CHOLESTEROL 34 MG/DL (40-60); POTASSIUM 3.9 MMOL/L (3.5-5.1); SODIUM 140 MMOL/L (136-145); TRIGLYCERIDES 108 MG/DL (30-150)
--- NOTE | 2018-11-02 10:28 | Cardiology Report ---
APPROVED REPORT EXAM: Two-dimensional and M-mode echocardiogram with Doppler and color Doppler. INDICATION Left ventricular function M-Mode DIMENSIONS IVSd1.9 (0.7-1.1cm)Left Atrium (MM)3.3 (1.6-4.0cm) LVDd5.0 (3.5-5.6cm)Aortic Root3.1 (2.0-3.7cm) PWd1.5 (0.7-1.1cm)Aortic Cusp Exc.2.3 (1.5-2.0cm) LVDs3.0 (2.5-4.0cm) PWs1.8 cm Normal left ventricular chamber size, systolic function and wall motion. Left ventricular ejection fraction estimated to be 55 %. Mild left ventricular hypertrophy. No evidence of pericardial effusion. All other cardiac chamber sizes are within normal limits. Focal aortic valve sclerosis with adequate cusp excursion. Thickened mitral valve leaflets with normal excursion. Mild mitral annulus and aortic root calcification. Normal pulmonic valve structure. Normal tricuspid valve structure. IVC is normal in size with physiological collapse. A color flow and spectral Doppler study was performed and revealed: No aortic insufficiency. Trace mitral regurgitation. Mitral diastolic velocities suggest mild left ventricular diastolic dysfunction (Grade I). No tricuspid regurgitation. Tricuspid systolic velocities suggests peak right ventricular systolic pressure of 8 mmHg. Trace pulmonic regurgitation present.
--- NOTE | 2018-11-02 11:17 | Pulmonology Progress Note ---
Assessment/Plan Problems: (1) ACS (acute coronary syndrome) (2) Gastritis (3) Chronic atrial fibrillation (4) Chronic anticoagulation (5) History of renal transplant Assessment/Plan no more episodes of chest pain all troponin negative echo reviewed awaiting cariology response. symptomatic treatment Subjective ROS Limited/Unobtainable: No Constitutional: Reports: no symptoms HEENT: Repors: no symptoms Respiratory: Reports: no symptoms Allergies: Coded Allergies: No Known Allergies (Unverified , 03/26/16) Objective Last 24 Hour Vital Signs Date Time Temp Pulse Resp B/P (MAP) Pulse Ox O2 Delivery O2 Flow Rate FiO2 11/02/18 09:00 Room Air 11/02/18 08:21 53 113/74 11/02/18 08:00 57 11/02/18 08:00 98.6 53 20 113/74 (87) 99 11/02/18 04:39 51 11/02/18 04:00 97.0 56 20 133/74 (93) 96 11/02/18 00:00 98.0 55 20 129/74 (92) 95 11/02/18 00:00 52 11/01/18 23:08 Room Air 11/01/18 21:00 53 125/76 11/01/18 20:49 54 16 Room Air 21 11/01/18 20:00 97.9 53 16 125/76 (92) 95 11/01/18 20:00 53 11/01/18 16:00 51 11/01/18 12:00 56 Intake and Output 11/01/18 11/02/18 18:59 06:59 Intake Total 685 ml Output Total 400 ml Balance 285 ml Intake Oral 685 ml Output Urine Total 400 ml # Voids 2 # Bowel Movements 1 Objective General Appearance: WD/WN Lines, tubes and drains: peripheral HEENT: normocephalic, atraumatic Neck: non-tender, normal alignment Respiratory/Chest: chest wall non-tender, lungs clear Abdomen: normal bowel sounds Genitourinary/Rectal: normal genital exam General Appearance: WD/WN Laboratory Tests 11/01/18 22:00: Urine Color Brown, Urine Appearance Clear, Urine pH 7, Urine Specific [place] 1.010, Urine Protein Negative, Urine Glucose (UA) Negative, Urine Ketones Negative, Urine Blood Negative, Urine Nitrite Negative, Urine Bilirubin Negative , Urine Urobilinogen 8H, Urine Leukocyte Esterase 2+H, Urine RBC 0-2H, Urine WBC 2-4, Urine Squamous Epithelial Cells None, Urine Bacteria Few, Urine Eosinophils None seen, Urine Random Creatinine [Pending], Urine Random Microalbumin [Pending], Urine Random Total Protein 19H, Urine Random Sodium 166H , Urine Creatinine 143.4H, Urine Microalbumin/Creatinine Ratio [Pending] 11/02/18 06:15: White Blood Count 5.0, Red Blood Count 4.55L, Hemoglobin 14.5, Hematocrit 43.5, Mean Corpuscular Volume 96, Mean Corpuscular Hemoglobin 31.9H, Mean Corpuscular Hemoglobin Concent 33.4, Red Cell Distribution Width 12.3, Platelet Count 172, Mean Platelet Volume 6.1L, Neutrophils (%) (Auto) 71.0, Lymphocytes (%) (Auto) 17.3L, Monocytes (%) (Auto) 9.7, Eosinophils (%) (Auto) 1.1, Basophils (%) (Auto ) 0.9, Prothrombin Time 10.6, Prothromb Time International Ratio 1.0, Activated Partial Thromboplast Time 31, Sodium Level 140, Potassium Level 3.9, Chloride Level 106, Carbon Dioxide Level 23, Anion Gap 11, Blood Urea Nitrogen 23H, Creatinine 1.0, Estimat Glomerular Filtration Rate > 60, Glucose Level 120H, Calcium Level 8.6, Troponin I 0.015, C-Reactive Protein, Quantitative < 0.4, Triglycerides Level 108, Cholesterol Level 137, LDL Cholesterol 84, HDL Cholesterol 34L, Cholesterol/HDL Ratio 4.0, Thyroid Stimulating Hormone (TSH) 0.913 Current Medications Medications (Trade) Dose Ordered Sig/Birdie Route PRN Reason Start Time Stop Time Status Last Admin Dose Admin Acetaminophen (Tylenol) 650 mg Q4H PRN ORAL T>100.5 11/01/18 09:15 12/01/18 09:14 Albuterol/ Ipratropium (Albuterol/ Ipratropium) 3 ml Q4H PRN HHN Shortness of Breath 11/01/18 09:15 11/06/18 09:14 Amiodarone HCl (Cordarone) 200 mg TWICE A DAY ORAL 11/01/18 18:00 12/01/18 17:59 11/01/18 17:25 Aspirin (ASA) 162 mg DAILY ORAL 11/01/18 10:00 12/01/18 09:59 11/02/18 08:10 Carvedilol (Coreg) 6.25 mg EVERY 12 HOURS ORAL 11/01/18 21:00 12/01/18 20:59 Cyclosporine (Neoral) 50 mg BEDTIME ORAL 11/01/18 21:00 12/01/18 20:59 11/01/18 21:09 Cyclosporine (SandIMMUNE) 100 mg BEDTIME ORAL 11/01/18 21:00 12/01/18 20:59 11/01/18 21:10 Diltiazem HCl (Cardizem) 10 mg EVERY HOUR PRN IV heart rate more than 120bpm 11/01/18 09:15 12/01/18 09:14 Enalaprilat (Vasotec) 2.5 mg Q6H PRN IV SBP > 160mmHg 11/01/18 09:15 12/01/18 09:14 Heparin Sodium (Porcine) (Heparin 5000 units/ml) 5,000 units EVERY 12 HOURS SUBQ 11/01/18 21:00 12/01/18 20:59 11/02/18 08:12 Ketorolac Tromethamine (Toradol 30mg) 30 mg Q6H PRN IV Moderate Pain (Pain Scale 4-6) 11/01/18 09:15 11/06/18 09:14 Morphine Sulfate (Morphine Sulfate) 2 mg Q4H PRN IVP Severe Pain (Pain Scale 7-10) 11/01/18 09:15 11/08/18 09:14 Mycophenolate Mofetil (Cellcept) 750 mg QHS ORAL 11/01/18 21:00 12/01/18 20:59 11/01/18 21:08 Nitroglycerin (Ntg) 0.4 mg Q5MIN X 3 DOSES PRN SL Prn Chest Pain 11/01/18 09:15 12/01/18 09:14 Ondansetron HCl (Zofran) 4 mg Q6H PRN IVP Nausea & Vomiting 11/01/18 09:15 12/01/18 09:14 Polyethylene Glycol (Miralax) 17 gm DAILYPRN PRN ORAL Constipation 11/01/18 09:15 12/01/18 09:14 Prednisone (predniSONE) 5 mg DAILY ORAL 11/02/18 09:00 12/02/18 08:59 11/02/18 08:10 Temazepam (Restoril) 15 mg HSPRN PRN ORAL Insomnia 11/01/18 21:00 11/08/18 20:59 Bassam Hanks MD Nov 02, 2018 11:17
--- NOTE | 2018-11-02 13:30 | Nephrology Progress Note ---
Assessment/Plan Assessment 1. History of cadaveric renal transplant. 2. Acute coronary syndrome. 3. Dyslipidemia. 4. HTN Plan Plan continue current meds continue transplants medication monitoring renal function avoid NSAID Subjective Constitutional: Reports: no symptoms HEENT: Reports: no symptoms Genitourinary: Reports: no symptoms Neurologic/Psychiatric: Reports: no symptoms Subjective feeling better Objective Objective Last 24 Hour Vital Signs Date Time Temp Pulse Resp B/P (MAP) Pulse Ox O2 Delivery O2 Flow Rate FiO2 11/02/18 09:00 Room Air 11/02/18 08:21 53 113/74 11/02/18 08:00 57 11/02/18 08:00 98.6 53 20 113/74 (87) 99 11/02/18 04:39 51 11/02/18 04:00 97.0 56 20 133/74 (93) 96 11/02/18 00:00 98.0 55 20 129/74 (92) 95 11/02/18 00:00 52 11/01/18 23:08 Room Air 11/01/18 21:00 53 125/76 11/01/18 20:49 54 16 Room Air 21 11/01/18 20:00 97.9 53 16 125/76 (92) 95 11/01/18 20:00 53 11/01/18 16:00 51 Intake and Output 11/01/18 11/02/18 18:59 06:59 Intake Total 685 ml Output Total 400 ml Balance 285 ml Intake Oral 685 ml Output Urine Total 400 ml # Voids 2 # Bowel Movements 1 Laboratory Tests 11/01/18 22:00: Urine Color Brown, Urine Appearance Clear, Urine pH 7, Urine Specific [place] 1.010, Urine Protein Negative, Urine Glucose (UA) Negative, Urine Ketones Negative, Urine Blood Negative, Urine Nitrite Negative, Urine Bilirubin Negative , Urine Urobilinogen 8H, Urine Leukocyte Esterase 2+H, Urine RBC 0-2H, Urine WBC 2-4, Urine Squamous Epithelial Cells None, Urine Bacteria Few, Urine Eosinophils None seen, Urine Random Creatinine [Pending], Urine Random Microalbumin [Pending], Urine Random Total Protein 19H, Urine Random Sodium 166H , Urine Creatinine 143.4H, Urine Microalbumin/Creatinine Ratio [Pending] 11/02/18 06:15: White Blood Count 5.0, Red Blood Count 4.55L, Hemoglobin 14.5, Hematocrit 43.5, Mean Corpuscular Volume 96, Mean Corpuscular Hemoglobin 31.9H, Mean Corpuscular Hemoglobin Concent 33.4, Red Cell Distribution Width 12.3, Platelet Count 172, Mean Platelet Volume 6.1L, Neutrophils (%) (Auto) 71.0, Lymphocytes (%) (Auto) 17.3L, Monocytes (%) (Auto) 9.7, Eosinophils (%) (Auto) 1.1, Basophils (%) (Auto ) 0.9, Prothrombin Time 10.6, Prothromb Time International Ratio 1.0, Activated Partial Thromboplast Time 31, Sodium Level 140, Potassium Level 3.9, Chloride Level 106, Carbon Dioxide Level 23, Anion Gap 11, Blood Urea Nitrogen 23H, Creatinine 1.0, Estimat Glomerular Filtration Rate > 60, Glucose Level 120H, Calcium Level 8.6, Troponin I 0.015, C-Reactive Protein, Quantitative < 0.4, Triglycerides Level 108, Cholesterol Level 137, LDL Cholesterol 84, HDL Cholesterol 34L, Cholesterol/HDL Ratio 4.0, Thyroid Stimulating Hormone (TSH) 0.913 Height (Feet): 5 Height (Inches): 7.00 Weight (Pounds): 160 Objective HEAD AND NECK: No JVP. No LAD. No thyromegaly. HEENT: Extraocular movements intact. Pupils are reactive to light and accommodation. LUNGS: Clear to auscultation. CARDIAC: Regular rate and rhythm. S1 and S2. No murmur. No rub. ABDOMEN: Soft, nontender, and nondistended. EXTREMITIES: No edema. No clubbing. No cyanosis. Viridiana Wilde MD Nov 02, 2018 13:30
--- NOTE | 2018-11-02 13:37 | General Progress Note ---
Assessment/Plan Problem List: (1) UTI (urinary tract infection) ICD Codes: N39.0 - Urinary tract infection, site not specified SNOMED: 04747740 (2) ACS (acute coronary syndrome) ICD Codes: I24.9 - Acute ischemic heart disease, unspecified SNOMED: 178363867 Status: unchanged Assessment/Plan pt diet abx bp bs control cbc bmp am Subjective Constitutional: Reports: weakness Allergies: Coded Allergies: No Known Allergies (Unverified , 03/26/16) All Systems: reviewed and negative except above Subjective calm in bed Objective Last 24 Hour Vital Signs Date Time Temp Pulse Resp B/P (MAP) Pulse Ox O2 Delivery O2 Flow Rate FiO2 11/02/18 09:00 Room Air 11/02/18 08:21 53 113/74 11/02/18 08:00 57 11/02/18 08:00 98.6 53 20 113/74 (87) 99 11/02/18 04:39 51 11/02/18 04:00 97.0 56 20 133/74 (93) 96 11/02/18 00:00 98.0 55 20 129/74 (92) 95 11/02/18 00:00 52 11/01/18 23:08 Room Air 11/01/18 21:00 53 125/76 11/01/18 20:49 54 16 Room Air 21 11/01/18 20:00 97.9 53 16 125/76 (92) 95 11/01/18 20:00 53 11/01/18 16:00 51 Intake and Output 11/01/18 11/02/18 18:59 06:59 Intake Total 685 ml Output Total 400 ml Balance 285 ml Intake Oral 685 ml Output Urine Total 400 ml # Voids 2 # Bowel Movements 1 Laboratory Tests 11/01/18 22:00: Urine Color Brown, Urine Appearance Clear, Urine pH 7, Urine Specific [place] 1.010, Urine Protein Negative, Urine Glucose (UA) Negative, Urine Ketones Negative, Urine Blood Negative, Urine Nitrite Negative, Urine Bilirubin Negative , Urine Urobilinogen 8H, Urine Leukocyte Esterase 2+H, Urine RBC 0-2H, Urine WBC 2-4, Urine Squamous Epithelial Cells None, Urine Bacteria Few, Urine Eosinophils None seen, Urine Random Creatinine [Pending], Urine Random Microalbumin [Pending], Urine Random Total Protein 19H, Urine Random Sodium 166H , Urine Creatinine 143.4H, Urine Microalbumin/Creatinine Ratio [Pending] 11/02/18 06:15: White Blood Count 5.0, Red Blood Count 4.55L, Hemoglobin 14.5, Hematocrit 43.5, Mean Corpuscular Volume 96, Mean Corpuscular Hemoglobin 31.9H, Mean Corpuscular Hemoglobin Concent 33.4, Red Cell Distribution Width 12.3, Platelet Count 172, Mean Platelet Volume 6.1L, Neutrophils (%) (Auto) 71.0, Lymphocytes (%) (Auto) 17.3L, Monocytes (%) (Auto) 9.7, Eosinophils (%) (Auto) 1.1, Basophils (%) (Auto ) 0.9, Prothrombin Time 10.6, Prothromb Time International Ratio 1.0, Activated Partial Thromboplast Time 31, Sodium Level 140, Potassium Level 3.9, Chloride Level 106, Carbon Dioxide Level 23, Anion Gap 11, Blood Urea Nitrogen 23H, Creatinine 1.0, Estimat Glomerular Filtration Rate > 60, Glucose Level 120H, Calcium Level 8.6, Troponin I 0.015, C-Reactive Protein, Quantitative < 0.4, Triglycerides Level 108, Cholesterol Level 137, LDL Cholesterol 84, HDL Cholesterol 34L, Cholesterol/HDL Ratio 4.0, Thyroid Stimulating Hormone (TSH) 0.913 Height (Feet): 5 Height (Inches): 7.00 Weight (Pounds): 160 General Appearance: lethargic EENT: normal ENT inspection Neck: normal alignment Cardiovascular: normal peripheral pulses, normal rate, regular rhythm Respiratory/Chest: chest wall non-tender, lungs clear, normal breath sounds Abdomen: normal bowel sounds, non tender, soft Extremities: normal inspection Edema: no edema noted Arm (L), no edema noted Arm (R), no edema noted Leg (L), no edema noted Leg (R), no edema noted Pedal (L), no edema noted Pedal (R), no edema noted Generalized Neurologic: responsive, motor weakness Skin: normal pigmentation, warm/dry Paul Bolivar DO Nov 02, 2018 13:37
--- NOTE | 2018-11-02 14:58 | Consultation ---
History of Present Illness General Date patient seen: Nov 02, 2018 Chief Complaint: Chest Pain Present Illness HPI 62 y/o M with hx of HTN, HLD, ESRD (previously on HD) s/p renal transplant ( DDKT) ~10 yrs ago on Cellcept/cyclosporine/5mg prednisone, CAD, CVA/TIA presents to ED on 11/01 with epigastric pain,nausea, vomtiing. Per patient's , patient has been having indigstion symptoms for the last few days but night befeore admission he had chest pain (03/10, non radiating). Was given nitro by EMS with some improvement. Denied SOB, dizziness. Allergies: Coded Allergies: No Known Allergies (Unverified , 03/26/16) Medication History Scheduled Amiodarone Hcl* (Cordarone*), 200 MG ORAL TWICE A DAY, (Reported) Aspirin* (Aspir 81*), 81 MG ORAL DAILY, (Reported) Carvedilol* (Carvedilol*), 6.25 MG ORAL EVERY 12 HOURS, (Reported) Cyclosporine (Neoral), 150 MG PO BEDTIME, (Reported) Lisinopril* (Lisinopril*), 2.5 MG ORAL DAILY, (Reported) Mycophenolate Mofetil (Mycophenolate Mofetil), 750 MG PO DAILY, (Reported) Omeprazole (Omeprazole), 40 MG ORAL DAILY, (Reported) Prednisone* (Prednisone*), 5 MG ORAL QHS, (Reported) Rosuvastatin Calcium* (Crestor*), 5 MG ORAL DAILY, (Reported) Miscellaneous Medications Apixaban (Eliquis), 5 MG PO, (Reported) Diphenoxylate Hcl/Atropine (Diphenoxylate-Atropine Tablet), 1 EACH PO, (Reported ) Prednisolone* (Prelone*), 5 MG ORAL, (Reported) Unable to Obtain Medications (Unable To Obtain Meds), (Reported) Discontinued Medications Mycophenolate Mofetil (Cellcept), 1,500 MG ORAL BEDTIME, (Reported) Discontinued Reason: Pt stopped taking med Patient History Healthcare decision maker ; Lucila Merrill Resuscitation status Full Code Advanced Directive on File Patient History Narrative Pmhx: as above Shx: He lives at home. There is no history of tobacco, alcohol, or drug use. Fhx: non contributory Review of Systems All Other Systems: negative except mentioned in HPI Physical Exam Physical Exam Narrative GENERAL: Calm in bed, oriented x3, no acute distress. CARDIOVASCULAR: No murmur. LUNGS: Distant, clear. ABDOMEN: Bowel sounds positive. Nontender. Nondistended. EXTREMITIES: No cyanosis or edema. NEUROLOGIC: The patient moves all extremities, slightly we Last 24 Hour Vital Signs Date Time Temp Pulse Resp B/P (MAP) Pulse Ox O2 Delivery O2 Flow Rate FiO2 11/02/18 12:00 67 11/02/18 09:38 61 16 Room Air 21 11/02/18 09:00 Room Air 11/02/18 08:21 53 113/74 11/02/18 08:00 57 11/02/18 08:00 98.6 53 20 113/74 (87) 99 11/02/18 04:39 51 11/02/18 04:00 97.0 56 20 133/74 (93) 96 11/02/18 00:00 98.0 55 20 129/74 (92) 95 11/02/18 00:00 52 11/01/18 23:08 Room Air 11/01/18 21:00 53 125/76 11/01/18 20:49 54 16 Room Air 21 11/01/18 20:00 97.9 53 16 125/76 (92) 95 11/01/18 20:00 53 11/01/18 16:00 51 Intake and Output 11/01/18 11/02/18 18:59 06:59 Intake Total 685 ml Output Total 400 ml Balance 285 ml Intake Oral 685 ml Output Urine Total 400 ml # Voids 2 # Bowel Movements 1 Laboratory Tests Test 11/01/18 22:00 11/02/18 06:15 Urine Color Brown Urine Appearance Clear Urine pH 7 (4.5-8.0) Urine Specific [place] 1.010 (1.005-1.035) Urine Protein Negative (NEGATIVE) Urine Glucose (UA) Negative (NEGATIVE) Urine Ketones Negative (NEGATIVE) Urine Blood Negative (NEGATIVE) Urine Nitrite Negative (NEGATIVE) Urine Bilirubin Negative (NEGATIVE) Urine Urobilinogen 8 MG/DL (0.0-1.0) H Urine Leukocyte Esterase 2+ (NEGATIVE) H Urine RBC 0-2 /HPF (0 - 0) H Urine WBC 2-4 /HPF (0 - 0) Urine Squamous Epithelial Cells None /LPF (NONE/OCC) Urine Bacteria Few /HPF (NONE) Urine Eosinophils None seen (NONE SEEN) Urine Random Creatinine Pending Urine Random Microalbumin Pending Urine Random Total Protein 19 MG/DL (< 11.9) H Urine Random Sodium 166 mmol/L (20-110) H Urine Creatinine 143.4 MG/DL (30.0-125.0) H Urine Microalbumin/Creatinine Ratio Pending White Blood Count 5.0 K/UL (4.8-10.8) Red Blood Count 4.55 M/UL (4.70-6.10) L Hemoglobin 14.5 G/DL (14.2-18.0) Hematocrit 43.5 % (42.0-52.0) Mean Corpuscular Volume 96 FL (80-99) Mean Corpuscular Hemoglobin 31.9 PG (27.0-31.0) H Mean Corpuscular Hemoglobin Concent 33.4 G/DL (32.0-36.0) Red Cell Distribution Width 12.3 % (11.6-14.8) Platelet Count 172 K/UL (150-450) Mean Platelet Volume 6.1 FL (6.5-10.1) L Neutrophils (%) (Auto) 71.0 % (45.0-75.0) Lymphocytes (%) (Auto) 17.3 % (20.0-45.0) L Monocytes (%) (Auto) 9.7 % (1.0-10.0) Eosinophils (%) (Auto) 1.1 % (0.0-3.0) Basophils (%) (Auto) 0.9 % (0.0-2.0) Prothrombin Time 10.6 SEC (9.30-11.50) Prothromb Time International Ratio 1.0 (0.9-1.1) Activated Partial Thromboplast Time 31 SEC (23-33) Sodium Level 140 MMOL/L (136-145) Potassium Level 3.9 MMOL/L (3.5-5.1) Chloride Level 106 MMOL/L (98-107) Carbon Dioxide Level 23 MMOL/L (21-32) Anion Gap 11 mmol/L (5-15) Blood Urea Nitrogen 23 mg/dL (7-18) H Creatinine 1.0 MG/DL (0.55-1.30) Estimat Glomerular Filtration Rate > 60 mL/min (>60) Glucose Level 120 MG/DL (74-106) H Calcium Level 8.6 MG/DL (8.5-10.1) Troponin I 0.015 ng/mL (0.000-0.056) C-Reactive Protein, Quantitative < 0.4 mg/dL (0.00-0.90) Triglycerides Level 108 MG/DL (30-150) Cholesterol Level 137 MG/DL (< 200) LDL Cholesterol 84 mg/dL (<100) HDL Cholesterol 34 MG/DL (40-60) L Cholesterol/HDL Ratio 4.0 (3.3-4.4) Thyroid Stimulating Hormone (TSH) 0.913 uiU/mL (0.358-3.740) Height (Feet): 5 Height (Inches): 7.00 Weight (Pounds): 160 Medications Current Medications Medications (Trade) Dose Ordered Sig/Birdie Route PRN Reason Start Time Stop Time Status Last Admin Dose Admin Acetaminophen (Tylenol) 650 mg Q4H PRN ORAL T>100.5 11/01/18 09:15 12/01/18 09:14 Albuterol/ Ipratropium (Albuterol/ Ipratropium) 3 ml Q4H PRN HHN Shortness of Breath 11/01/18 09:15 11/06/18 09:14 Amiodarone HCl (Cordarone) 200 mg TWICE A DAY ORAL 11/01/18 18:00 12/01/18 17:59 11/01/18 17:25 Aspirin (ASA) 162 mg DAILY ORAL 11/01/18 10:00 12/01/18 09:59 11/02/18 08:10 Carvedilol (Coreg) 6.25 mg EVERY 12 HOURS ORAL 11/01/18 21:00 12/01/18 20:59 Cyclosporine (Neoral) 50 mg BEDTIME ORAL 11/01/18 21:00 12/01/18 20:59 11/01/18 21:09 Cyclosporine (SandIMMUNE) 100 mg BEDTIME ORAL 11/01/18 21:00 12/01/18 20:59 11/01/18 21:10 Diltiazem HCl (Cardizem) 10 mg EVERY HOUR PRN IV heart rate more than 120bpm 11/01/18 09:15 12/01/18 09:14 Enalaprilat (Vasotec) 2.5 mg Q6H PRN IV SBP > 160mmHg 11/01/18 09:15 12/01/18 09:14 Heparin Sodium (Porcine) (Heparin 5000 units/ml) 5,000 units EVERY 12 HOURS SUBQ 11/01/18 21:00 12/01/18 20:59 11/02/18 08:12 Ketorolac Tromethamine (Toradol 30mg) 30 mg Q6H PRN IV Moderate Pain (Pain Scale 4-6) 11/01/18 09:15 11/06/18 09:14 Morphine Sulfate (Morphine Sulfate) 2 mg Q4H PRN IVP Severe Pain (Pain Scale 7-10) 11/01/18 09:15 11/08/18 09:14 Mycophenolate Mofetil (Cellcept) 750 mg QHS ORAL 11/01/18 21:00 12/01/18 20:59 11/01/18 21:08 Nitroglycerin (Ntg) 0.4 mg Q5MIN X 3 DOSES PRN SL Prn Chest Pain 11/01/18 09:15 12/01/18 09:14 Ondansetron HCl (Zofran) 4 mg Q6H PRN IVP Nausea & Vomiting 11/01/18 09:15 12/01/18 09:14 Polyethylene Glycol (Miralax) 17 gm DAILYPRN PRN ORAL Constipation 11/01/18 09:15 12/01/18 09:14 Prednisone (predniSONE) 5 mg DAILY ORAL 11/02/18 09:00 12/02/18 08:59 11/02/18 08:10 Temazepam (Restoril) 15 mg HSPRN PRN ORAL Insomnia 11/01/18 21:00 11/08/18 20:59 Assessment/Plan Assessment/Plan Abx: None Assessment: Epigastric pain, N/V- likely gastritis; now resolved -trops neg Afebrile No leukocytosis- no infectious process at present HTN HLD ESRD (previously on HD) s/p renal transplant (DDKT) ~10 yrs ago -on Cellcept/cyclosporine/5mg prednisone CAD Plan: -Continue to monitor off abx -f/u cx -Monitor CBC/CMP, temperatures -supportive treatment Thank you for this consultation. Will continue to follow along with you. Discussed with Shelli Saldivar M.D. Nov 02, 2018 14:58
--- NOTE | 2018-11-02 17:29 | NUR ---
INSURANCE CLINICAL REVIEWS FAXED TO NO BATCH ANALYST ASSIGNED AT THIS TIME PLEASE FAX THE REVIEW/CLINICAL P- [phone] f- [phone]
--- NOTE | 2018-11-02 19:00 | NUR ---
NURSE NOTES: Left message to regarding the name of pharmacy and number of pharmacy. Awaiting for callback. Will endorsed to night nurse.
--- NOTE | 2018-11-02 19:33 | NUR ---
HAND-OFF: Report given to MARCIAL Dale.
[2018-11-02 20:00] VITALS: BP 138/65
--- NOTE | 2018-11-02 20:07 | NUR ---
NURSE NOTES: Report received from MARCIAL Awan. Pt is in stable condition. Pt is A+Ox4 with no signs or symptoms of pain or cardiopulmonary distress noted. Call light is within reach, bed in the lowest position, bed rails engaged and raised x3. Will continue to monitor
[2018-11-02] MEDS ORDERED: Mycophenolate 250mg cap ORAL SCH (21:00)
[2018-11-02] MEDS: cycloSPORINE 25mg cap ORAL SCH (21:21)
[2018-11-02] MEDS: cycloSPORINE 100mg cap ORAL SCH (21:21)
--- NOTE | 2018-11-02 22:36 | Cardiology Progress Note ---
Assessment/Plan Assessment/Plan The patient is seen and examined, full consult note is dictated. Objective Last 24 Hour Vital Signs Date Time Temp Pulse Resp B/P (MAP) Pulse Ox O2 Delivery O2 Flow Rate FiO2 11/02/18 21:00 52 138/65 11/02/18 20:15 52 16 Room Air 21 11/02/18 16:00 58 11/02/18 12:00 67 11/02/18 09:38 61 16 Room Air 21 11/02/18 09:00 Room Air 11/02/18 08:21 53 113/74 11/02/18 08:00 57 11/02/18 08:00 98.6 53 20 113/74 (87) 99 11/02/18 04:39 51 11/02/18 04:00 97.0 56 20 133/74 (93) 96 11/02/18 00:00 98.0 55 20 129/74 (92) 95 11/02/18 00:00 52 11/01/18 23:08 Room Air Intake and Output 11/01/18 11/02/18 19:00 07:00 Intake Total 685 ml Output Total 400 ml Balance 285 ml Intake Oral 685 ml Output Urine Total 400 ml # Voids 2 # Bowel Movements 1 Laboratory Tests Test 11/02/18 06:15 White Blood Count 5.0 K/UL (4.8-10.8) Red Blood Count 4.55 M/UL (4.70-6.10) L Hemoglobin 14.5 G/DL (14.2-18.0) Hematocrit 43.5 % (42.0-52.0) Mean Corpuscular Volume 96 FL (80-99) Mean Corpuscular Hemoglobin 31.9 PG (27.0-31.0) H Mean Corpuscular Hemoglobin Concent 33.4 G/DL (32.0-36.0) Red Cell Distribution Width 12.3 % (11.6-14.8) Platelet Count 172 K/UL (150-450) Mean Platelet Volume 6.1 FL (6.5-10.1) L Neutrophils (%) (Auto) 71.0 % (45.0-75.0) Lymphocytes (%) (Auto) 17.3 % (20.0-45.0) L Monocytes (%) (Auto) 9.7 % (1.0-10.0) Eosinophils (%) (Auto) 1.1 % (0.0-3.0) Basophils (%) (Auto) 0.9 % (0.0-2.0) Prothrombin Time 10.6 SEC (9.30-11.50) Prothromb Time International Ratio 1.0 (0.9-1.1) Activated Partial Thromboplast Time 31 SEC (23-33) Sodium Level 140 MMOL/L (136-145) Potassium Level 3.9 MMOL/L (3.5-5.1) Chloride Level 106 MMOL/L (98-107) Carbon Dioxide Level 23 MMOL/L (21-32) Anion Gap 11 mmol/L (5-15) Blood Urea Nitrogen 23 mg/dL (7-18) H Creatinine 1.0 MG/DL (0.55-1.30) Estimat Glomerular Filtration Rate > 60 mL/min (>60) Glucose Level 120 MG/DL (74-106) H Calcium Level 8.6 MG/DL (8.5-10.1) Troponin I 0.015 ng/mL (0.000-0.056) C-Reactive Protein, Quantitative < 0.4 mg/dL (0.00-0.90) Triglycerides Level 108 MG/DL (30-150) Cholesterol Level 137 MG/DL (< 200) LDL Cholesterol 84 mg/dL (<100) HDL Cholesterol 34 MG/DL (40-60) L Cholesterol/HDL Ratio 4.0 (3.3-4.4) Thyroid Stimulating Hormone (TSH) 0.913 uiU/mL (0.358-3.740) Adrian Segura MD Nov 02, 2018 22:36
[2018-11-02] MEDS: Eliquis 2.5mg tablet ORAL SCH (23:26)
[2018-11-03] VITALS: BP 130/82
--- NOTE | 2018-11-03 00:15 | Consultation ---
DATE OF CONSULTATION: 11/02/2018 CARDIOLOGY CONSULTATION CONSULTING PHYSICIAN: Adrian Segura M.D. REFERRING PHYSICIAN: Paul Bolivar D.O. REASON FOR CONSULTATION: Management of chest pain. HISTORY OF PRESENT ILLNESS: The patient is a very unfortunate 62-year-old gentleman with prior history of hypertension, coronary artery disease status post myocardial infarction, CVA/TIA, and history of end-stage renal disease status post kidney transplant with normal kidney function, who presents to the hospital with chest pain, with associated abdominal pain following a few days of dyspepsia. Chest pain is characterized as sharp, intensity of 7/10, nonradiating, not quite responsive to aspirin and nitroglycerin given by EMS, although with some improvement. The patient at the time of arrival to the hospital had blood pressure 156/92 with a pulse of 54. A 12-lead electrocardiogram at the time of arrival to the emergency department had revealed sinus bradycardia, rate of [address] and T-wave abnormalities. Normal QT interval. The patient was admitted to telemetry for further evaluation and management of abdominal pain as well as chest pain. PAST MEDICAL HISTORY: 1. Hypertension. 2. CAD status post MD. 3. CVA-TIA. 4. End-stage renal disease, status post renal transplant. 5. History of paroxysmal atrial fibrillation. PAST SURGICAL HISTORY: Bilateral kidney transplantation about 15 years ago. FAMILY HISTORY: No premature coronary artery disease in first-degree relatives. ALLERGIES: No known drug allergies. MEDICATIONS: List of medication includes amiodarone 200 mg twice daily, apixaban 5 mg p.o. twice daily, aspirin 81 mg p.o. daily, carvedilol 6.25 mg q.12 h., Neoral 150 mg p.o. nightly, diphenoxylate atropine one tablet p.o. daily p.r.n. diarrhea, lisinopril 2.5 mg daily, mycophenolate mofetil 750 mg p.o. daily, omeprazole 40 mg p.o. daily, prednisolone 5 mg p.o. daily, and Crestor 5 mg p.o. daily. REVIEW OF SYSTEMS: A 12-system review done essentially negative except what was mentioned in history of present illness. PHYSICAL EXAMINATION: VITAL SIGNS: Blood pressure is 156/92, respirations 18, pulse 54, and temperature 97.3 degrees Fahrenheit. O2 saturation 100% on room air. GENERAL: A 62-year-old [place] gentleman, in no apparent respiratory distress. HEENT: Atraumatic and normocephalic. Anicteric. Pupils are equal, round, and reactive to light and accommodation. Extraocular muscles intact. NECK: JVP less than 5 cm. No carotid bruits. Carotid upstrokes 2+. CARDIOVASCULAR: Normal S1, S2. Regular rate and rhythm. Bradycardic. No murmurs, gallops, or rubs. LUNGS: Clear to auscultation bilaterally. ABDOMEN: Soft, nontender, and nondistended. No hepatosplenomegaly. Positive bowel sounds. EXTREMITIES: No evidence of edema, clubbing, or cyanosis. IMAGING STUDIES: Chest x-ray showed elevation of right hemidiaphragm, otherwise no acute cardiopulmonary disease. 2D echocardiography, normal left ventricular systolic function with LVEF of about 55%, mild LVH, grade 1 LV diastolic dysfunction, and RVSP of 8 mmHg. LABORATORY FINDINGS: Sodium 140, potassium 4.1, chloride 103, bicarbonate 30, BUN 27, and creatinine 1.2. Glucose 183. Calcium is 8.8. ProBNP was 142. Troponin I negative x3. Total cholesterol was 137, LDL 84, and HDL 34. Triglycerides 137. INR is 1.0. ASSESSMENT AND PLAN: The patient is a very unfortunate 62-year-old gentleman, who is seen in Cardiology consultation. 1. Sinus bradycardia, most likely due to amiodarone. This patient has not shown any evidence of arrhythmia ever since arrival to this facility. 2. Paroxysmal atrial fibrillation. We will continue amiodarone and apixaban. 3. Chest pain/abdominal pain, most likely noncardiac. The patient request to have GI workup, 12-lead electrocardiogram does not show any ischemic changes. Acute myocardial infarction is ruled out. We will continue with aspirin. 4. History of hypertension. We will continue with lisinopril and carvedilol. 5. End-stage renal disease status post renal transplant with normal renal function. Continue prednisolone and mycophenolate mofetil. 6. History of stroke/transient ischemic attack. Again, aspirin and rosuvastatin. I would like to give rosuvastatin 10 mg nightly for better goal of LDL less than 70. I would like to thank Dr. Bolivar for courtesy of this consultation. Adrian Segura M.D. DR: FADI JOB#: [id number] CC:
[2018-11-03 04:00] VITALS: BP 135/80
[2018-11-03 07:07] LABS: BASOPHILS % (AUTO) 0.8 % (0.0-2.0); EOSINOPHILS % (AUTO) 1.8 % (0.0-3.0); HEMATOCRIT 43.7 % (42.0-52.0); HEMOGLOBIN 14.6 G/DL (14.2-18.0); LYMPHOCYTES % (AUTO) 25.3 % (20.0-45.0); MEAN CORPUSCULAR VOLUME 95 FL (80-99); MONOCYTES % (AUTO) 9.9 % (1.0-10.0); NEUTROPHILS % (AUTO) 62.3 % (45.0-75.0); PLATELET COUNT 188 K/UL (150-450); RED BLOOD COUNT 4.63 M/UL (4.70-6.10); RED CELL DISTRIBUTION WIDTH 12.2 % (11.6-14.8)
--- NOTE | 2018-11-03 07:09 | NUR ---
CASE MANAGEMENT:REVIEW 11/03/18 SI: CHEST/ABDOMINAL PAIN. PAFIB SINUS BRADYCARDIA. BILATERAL KIDNEY TRANSPLANT 97.5 48 19 135/80 96% ON RA IS: ASA PO QD ELIQUIS PO BID CELLCEPT PO QHS CYCLOSPORINE PO QHS PREDNISONE PO QD COREG PO Q12 AMIODARONE PO BID : TELEMETRY STATUS DCP: FROM HOME
[2018-11-03 07:17] LABS: ANION GAP 8 mmol/L (5-15); BLOOD UREA NITROGEN 22 mg/dL (7-18); CARBON DIOXIDE 26 MMOL/L (21-32); CHLORIDE 105 MMOL/L (98-107); POTASSIUM 4.1 MMOL/L (3.5-5.1); SODIUM 139 MMOL/L (136-145)
--- NOTE | 2018-11-03 07:20 | NUR ---
NURSE NOTES: received patient report from filipe chatterjee. patient is on bed awake, comfortably eating breakfast. NOT IN ACUTE DISTRESS. NO ARRYTHMIAS REPORTED DURINg the night.bed is low and locked for safety. will continue plan of care.
--- NOTE | 2018-11-03 07:22 | NUR ---
HAND-OFF: Report given to MARCIAL Osborn. Pt is in stable condition, plan of care endorsed.
[2018-11-03 08:00] VITALS: BP 151/53
[2018-11-03] MEDS: Eliquis 2.5mg tablet ORAL SCH ×2 (08:32→17:08)
[2018-11-03] MEDS: Carvedilol 6.25mg Tab ORAL SCH (08:40)
[2018-11-03] MEDS: Amiodarone 200mg tab ORAL SCH ×2 (08:42→17:08)
[2018-11-03] MEDS ORDERED: Aspirin Baby 81mg ORAL SCH (09:00)
--- NOTE | 2018-11-03 10:47 | Pulmonology Progress Note ---
Assessment/Plan Problems: (1) ACS (acute coronary syndrome) (2) Gastritis (3) Chronic atrial fibrillation (4) Chronic anticoagulation (5) History of renal transplant Assessment/Plan cardio note appreciated GI was called no more episodes of chest pain all troponin negative echo reviewed symptomatic treatment Subjective ROS Limited/Unobtainable: No Constitutional: Reports: no symptoms HEENT: Repors: no symptoms Allergies: Coded Allergies: No Known Allergies (Unverified , 03/26/16) Objective Last 24 Hour Vital Signs Date Time Temp Pulse Resp B/P (MAP) Pulse Ox O2 Delivery O2 Flow Rate FiO2 11/03/18 08:40 54 151/83 11/03/18 08:00 96.1 54 20 151/53 (85) 96 11/03/18 04:00 97.5 58 19 135/80 (98) 96 11/03/18 04:00 48 11/03/18 00:00 98.0 55 18 130/82 (98) 98 11/03/18 00:00 50 11/02/18 21:00 Room Air 11/02/18 21:00 52 138/65 11/02/18 20:15 52 16 Room Air 21 11/02/18 20:00 52 11/02/18 20:00 98.1 52 20 138/65 (89) 95 11/02/18 16:00 58 11/02/18 12:00 67 Intake and Output 11/02/18 11/03/18 19:00 07:00 Intake Total 820 ml Balance 820 ml Intake Oral 820 ml # Voids 2 1 # Bowel Movements 1 Objective General Appearance: WD/WN Lines, tubes and drains: peripheral HEENT: normocephalic, atraumatic Neck: non-tender, normal alignment Respiratory/Chest: chest wall non-tender, lungs clear Abdomen: normal bowel sounds Genitourinary/Rectal: normal genital exam Laboratory Tests 11/03/18 05:17: White Blood Count 6.0, Red Blood Count 4.63L, Hemoglobin 14.6, Hematocrit 43.7, Mean Corpuscular Volume 95, Mean Corpuscular Hemoglobin 31.5H, Mean Corpuscular Hemoglobin Concent 33.3, Red Cell Distribution Width 12.2, Platelet Count 188, Mean Platelet Volume 6.3L, Neutrophils (%) (Auto) 62.3, Lymphocytes (%) (Auto) 25.3, Monocytes (%) (Auto) 9.9, Eosinophils (%) (Auto) 1.8, Basophils (%) (Auto ) 0.8, Sodium Level 139, Potassium Level 4.1, Chloride Level 105, Carbon Dioxide Level 26, Anion Gap 8, Blood Urea Nitrogen 22H, Creatinine 1.0, Estimat Glomerular Filtration Rate > 60, Glucose Level 106, Calcium Level 9.0, Troponin I 0.000 Current Medications Medications (Trade) Dose Ordered Sig/Birdie Route PRN Reason Start Time Stop Time Status Last Admin Dose Admin Acetaminophen (Tylenol) 650 mg Q4H PRN ORAL T>100.5 11/01/18 09:15 12/01/18 09:14 Albuterol/ Ipratropium (Albuterol/ Ipratropium) 3 ml Q4H PRN HHN Shortness of Breath 11/01/18 09:15 11/06/18 09:14 Amiodarone HCl (Cordarone) 200 mg TWICE A DAY ORAL 11/01/18 18:00 12/01/18 17:59 11/02/18 17:33 Apixaban (Eliquis) 5 mg BID ORAL 11/02/18 22:45 12/02/18 22:44 11/03/18 08:32 Aspirin (ASA) 81 mg DAILY ORAL 11/03/18 09:00 12/03/18 08:59 11/03/18 08:31 Atorvastatin Calcium (Lipitor) 10 mg BEDTIME ORAL 11/03/18 21:00 12/03/18 20:59 Carvedilol (Coreg) 6.25 mg EVERY 12 HOURS ORAL 11/01/18 21:00 12/01/18 20:59 Cyclosporine (Neoral) 50 mg BEDTIME ORAL 11/01/18 21:00 12/01/18 20:59 11/02/18 21:21 Cyclosporine (SandIMMUNE) 100 mg BEDTIME ORAL 11/01/18 21:00 12/01/18 20:59 11/02/18 21:21 Diltiazem HCl (Cardizem) 10 mg EVERY HOUR PRN IV heart rate more than 120bpm 11/01/18 09:15 12/01/18 09:14 Enalaprilat (Vasotec) 2.5 mg Q6H PRN IV SBP > 160mmHg 11/01/18 09:15 12/01/18 09:14 Ketorolac Tromethamine (Toradol 30mg) 30 mg Q6H PRN IV Moderate Pain (Pain Scale 4-6) 11/01/18 09:15 11/06/18 09:14 Morphine Sulfate (Morphine Sulfate) 2 mg Q4H PRN IVP Severe Pain (Pain Scale 7-10) 11/01/18 09:15 11/08/18 09:14 Mycophenolate Mofetil (Cellcept) 750 mg QHS ORAL 11/02/18 21:00 12/02/18 20:59 11/02/18 21:22 Nitroglycerin (Ntg) 0.4 mg Q5MIN X 3 DOSES PRN SL Prn Chest Pain 11/01/18 09:15 12/01/18 09:14 Ondansetron HCl (Zofran) 4 mg Q6H PRN IVP Nausea & Vomiting 11/01/18 09:15 12/01/18 09:14 Polyethylene Glycol (Miralax) 17 gm DAILYPRN PRN ORAL Constipation 11/01/18 09:15 12/01/18 09:14 11/02/18 18:07 Prednisone (predniSONE) 5 mg DAILY ORAL 11/02/18 09:00 12/02/18 08:59 11/03/18 08:32 Temazepam (Restoril) 15 mg HSPRN PRN ORAL Insomnia 11/01/18 21:00 11/08/18 20:59 Bassam Hanks MD Nov 03, 2018 10:47
--- NOTE | 2018-11-03 11:22 | GI Initial Consult Note ---
History of Present Illness General Date patient seen: Nov 03, 2018 Time patient seen: 11:18 Reason for Hospitalization: Chest Pain Referring physician: SHANNAN PATEL Reason for Consultation: Abdominal pain Present Illness HPI 62-year-old male presents ED for evaluation. Brought in by EMS complaining of chest pain. Patient is Georgian speaking. Patient states that patient's been having indigestion symptoms for the last few days but started tonight he started to have chest pain. Sharp, 7 out of 10, nonradiating. Was given aspirin and nitroglycerin by EMS with some improvement. Per patient had a kidney transplant several years ago. Is currently compliant with his medications. No longer receives dialysis. Denies alcohol or drug use. No other aggravating relieving factors. Denies any other associated symptoms GI consulted for abdominal pain. According to the patient, he had severe abdominal pain that lasted for approximately 1 day. At this time the patient says that his abdominal pain has resolved. Labs reviewed; no leukocytosis, no anemia, no transaminitis. The abdomen is soft with areas of tympany, nontender and nondistended. The patient denies any history of endoscopic or colonoscopy. Denies any nausea vomiting or diarrhea. Home Meds Reported Medications Diphenoxylate Hcl/Atropine (DIPHENOXYLATE-ATROPINE TABLET) 1 Each Tablet, 1 EACH PO, TAB 11/01/18 Lisinopril* (LISINOPRIL*) 2.5 Mg Tablet, 2.5 MG ORAL DAILY, TAB 0 Refills 11/01/18 Prednisolone* (PRELONE*) 15 Mg/5 Ml Solution, 5 MG ORAL, ML 11/01/18 Apixaban (ELIQUIS) 5 Mg Tablet, 5 MG PO, TAB 11/01/18 Carvedilol* (CARVEDILOL*) 6.25 Mg Tablet, 6.25 MG ORAL EVERY 12 HOURS, TAB 11/01/18 Rosuvastatin Calcium* (CRESTOR*) 10 Mg Tablet, 5 MG ORAL DAILY, TAB 11/01/18 Mycophenolate Mofetil (MYCOPHENOLATE MOFETIL) 250 Mg Capsule, 750 MG PO DAILY, CAP 11/01/18 Omeprazole (OMEPRAZOLE) 40 Mg Capsule.dr, 40 MG ORAL DAILY, CAP 11/01/18 Amiodarone Hcl* (CORDARONE*) 200 Mg Tablet, 200 MG ORAL TWICE A DAY, TAB 11/01/18 Aspirin* (ASPIR 81*) 81 Mg Tablet.dr, 81 MG ORAL DAILY, TAB 11/01/18 Prednisone* (PREDNISONE*) 2.5 Mg Tablet, 5 MG ORAL QHS, #10 TAB 0 Refills 03/27/16 Cyclosporine (Neoral) 100 Mg Capsule, 150 MG PO BEDTIME, CAP 03/27/16 Unable to Obtain Medications (UNABLE TO OBTAIN MEDS) 1 Ea Ea 03/26/16 Discontinued Reported Medications Mycophenolate Mofetil (CELLCEPT) 500 Mg Tablet, 1500 MG ORAL BEDTIME, TAB 03/27/16 Med list reviewed/reconciled: Yes Allergies: Coded Allergies: No Known Allergies (Unverified , 03/26/16) Patient History Limited by: language barrier History Provided By: Patient, Medical Record PMH Narrative Past Medical History: HTN, [place], CVA/TIA, renal disease Past Surgical History: other - kidney transplant Pertinent Family History: none Social History: Denies: smoking, alcohol use, drug use Immunizations: UTD Reviewed Nursing Documentation: PMH: Agreed; PSxH: Agreed Nursing Documentation-PMH Hx Hypertension: Yes Hx Cancer: No Hx Gastrointestinal Problems: No Hx Dialysis: No - bilat kidney transp (15yrs ago) Hx Cerebrovascular Accident: Yes - stroke Social History: Denies: smoking, alcohol use, drug use, other Review of Systems All Other Systems: negative except mentioned in HPI Physical Exam Vital Signs Date Time Temp Pulse Resp B/P (MAP) Pulse Ox O2 Delivery O2 Flow Rate FiO2 11/01/18 03:43 97.2 54 18 156/92 100 Room Air 11/01/18 20:49 21 Sp02 EP Interpretation: reviewed, normal Labs Laboratory Tests Test 11/03/18 05:17 White Blood Count 6.0 K/UL (4.8-10.8) Red Blood Count 4.63 M/UL (4.70-6.10) L Hemoglobin 14.6 G/DL (14.2-18.0) Hematocrit 43.7 % (42.0-52.0) Mean Corpuscular Volume 95 FL (80-99) Mean Corpuscular Hemoglobin 31.5 PG (27.0-31.0) H Mean Corpuscular Hemoglobin Concent 33.3 G/DL (32.0-36.0) Red Cell Distribution Width 12.2 % (11.6-14.8) Platelet Count 188 K/UL (150-450) Mean Platelet Volume 6.3 FL (6.5-10.1) L Neutrophils (%) (Auto) 62.3 % (45.0-75.0) Lymphocytes (%) (Auto) 25.3 % (20.0-45.0) Monocytes (%) (Auto) 9.9 % (1.0-10.0) Eosinophils (%) (Auto) 1.8 % (0.0-3.0) Basophils (%) (Auto) 0.8 % (0.0-2.0) Sodium Level 139 MMOL/L (136-145) Potassium Level 4.1 MMOL/L (3.5-5.1) Chloride Level 105 MMOL/L (98-107) Carbon Dioxide Level 26 MMOL/L (21-32) Anion Gap 8 mmol/L (5-15) Blood Urea Nitrogen 22 mg/dL (7-18) H Creatinine 1.0 MG/DL (0.55-1.30) Estimat Glomerular Filtration Rate > 60 mL/min (>60) Glucose Level 106 MG/DL (74-106) Calcium Level 9.0 MG/DL (8.5-10.1) Troponin I 0.000 ng/mL (0.000-0.056) General Appearance: well appearing, no apparent distress, alert Head: normocephalic EENT: PERRL/EOMI, normal ENT inspection Neck: supple Respiratory: normal breath sounds, no respiratory distress Cardiovascular: normal rate Gastrointestinal: normal inspection, non tender, soft, normal bowel sounds, non -distended Rectal: deferred Genitourinary: deferred Musculoskeletal: normal inspection, back normal Neurologic: normal inspection, alert, oriented x3, responsive Psychiatric: normal inspection, judgement/insight normal, memory normal Skin: normal inspection, normal color, no rash, warm/dry, palpation normal, well hydrated Lymphatic: normal inspection, no adenopathy Current Medications Current Medications Medications (Trade) Dose Ordered Sig/Birdie Route PRN Reason Start Time Stop Time Status Last Admin Dose Admin Acetaminophen (Tylenol) 650 mg Q4H PRN ORAL T>100.5 11/01/18 09:15 12/01/18 09:14 Albuterol/ Ipratropium (Albuterol/ Ipratropium) 3 ml Q4H PRN HHN Shortness of Breath 11/01/18 09:15 11/06/18 09:14 Amiodarone HCl (Cordarone) 200 mg TWICE A DAY ORAL 11/01/18 18:00 12/01/18 17:59 11/02/18 17:33 Apixaban (Eliquis) 5 mg BID ORAL 11/02/18 22:45 12/02/18 22:44 11/03/18 08:32 Aspirin (ASA) 81 mg DAILY ORAL 11/03/18 09:00 12/03/18 08:59 11/03/18 08:31 Atorvastatin Calcium (Lipitor) 10 mg BEDTIME ORAL 11/03/18 21:00 12/03/18 20:59 Carvedilol (Coreg) 6.25 mg EVERY 12 HOURS ORAL 11/01/18 21:00 12/01/18 20:59 Cyclosporine (Neoral) 50 mg BEDTIME ORAL 11/01/18 21:00 12/01/18 20:59 11/02/18 21:21 Cyclosporine (SandIMMUNE) 100 mg BEDTIME ORAL 11/01/18 21:00 12/01/18 20:59 11/02/18 21:21 Diltiazem HCl (Cardizem) 10 mg EVERY HOUR PRN IV heart rate more than 120bpm 11/01/18 09:15 12/01/18 09:14 Enalaprilat (Vasotec) 2.5 mg Q6H PRN IV SBP > 160mmHg 11/01/18 09:15 12/01/18 09:14 Ketorolac Tromethamine (Toradol 30mg) 30 mg Q6H PRN IV Moderate Pain (Pain Scale 4-6) 11/01/18 09:15 11/06/18 09:14 Morphine Sulfate (Morphine Sulfate) 2 mg Q4H PRN IVP Severe Pain (Pain Scale 7-10) 11/01/18 09:15 11/08/18 09:14 Mycophenolate Mofetil (Cellcept) 750 mg QHS ORAL 11/02/18 21:00 12/02/18 20:59 11/02/18 21:22 Nitroglycerin (Ntg) 0.4 mg Q5MIN X 3 DOSES PRN SL Prn Chest Pain 11/01/18 09:15 12/01/18 09:14 Ondansetron HCl (Zofran) 4 mg Q6H PRN IVP Nausea & Vomiting 11/01/18 09:15 12/01/18 09:14 Polyethylene Glycol (Miralax) 17 gm DAILYPRN PRN ORAL Constipation 11/01/18 09:15 12/01/18 09:14 11/02/18 18:07 Prednisone (predniSONE) 5 mg DAILY ORAL 11/02/18 09:00 12/02/18 08:59 11/03/18 08:32 Temazepam (Restoril) 15 mg HSPRN PRN ORAL Insomnia 11/01/18 21:00 11/08/18 20:59 GI: Plan Problems: (1) Abdominal pain (2) Abdominal bloating (3) Gas pain (4) Gastritis Plan At this time the patient's abdominal pain is resolved Okay for DC per GI standpoint Symptomatic treatment Simethicone as needed Zofran as needed Recommended that the patient have an outpatient endoscopy to evaluate his abdominal pain and initial colonoscopy screening, to follow up with PCP. Discussed with Dr. Wolfe. Thank you for this patient referral, we will follow. The patient was seen and examined at bedside and all new and available data was reviewed in the patients chart. I agree with the above findings, impression and plan. (Patient seen earlier today. Signature stamp does not reflect patient encounter time.). - MD Toya Valdes,Yusra-González DEANNA Nov 03, 2018 11:22
[2018-11-03] MEDS ORDERED: Simethicone 80mg tab ORAL PRN (11:30)
[2018-11-03 12:00] VITALS: BP 139/81
--- NOTE | 2018-11-03 12:30 | Infectious Diseases Prog Note ---
Assessment/Plan Assessment/Plan Abx: None Assessment: Epigastric pain, N/V- likely gastritis; now resolved -trops neg Afebrile No leukocytosis- no infectious process at present HTN HLD ESRD (previously on HD) s/p renal transplant ([facility]) ~10 yrs ago -on Cellcept/cyclosporine/5mg prednisone CAD Plan: -Continue to monitor off abx -f/u cx -Monitor CBC/CMP, temperatures -supportive treatment Thank you for this consultation. Will continue to follow along with you. Discussed with RN. Subjective Allergies: Coded Allergies: No Known Allergies (Unverified , 03/26/16) Subjective afebrile no leukocytosis offa bx Objective Vital Signs Last 24 Hour Vital Signs Date Time Temp Pulse Resp B/P (MAP) Pulse Ox O2 Delivery O2 Flow Rate FiO2 11/03/18 09:00 Room Air 11/03/18 08:40 54 151/83 11/03/18 08:39 61 16 Room Air 21 11/03/18 08:00 59 11/03/18 08:00 96.1 54 20 151/53 (85) 96 11/03/18 04:00 97.5 58 19 135/80 (98) 96 11/03/18 04:00 48 11/03/18 00:00 98.0 55 18 130/82 (98) 98 11/03/18 00:00 50 11/02/18 21:00 Room Air 11/02/18 21:00 52 138/65 11/02/18 20:15 52 16 Room Air 21 11/02/18 20:00 52 11/02/18 20:00 98.1 52 20 138/65 (89) 95 11/02/18 16:00 58 Height (Feet): 5 Height (Inches): 7.00 Weight (Pounds): 160 Objective GENERAL: Calm in bed, oriented x3, no acute distress. CARDIOVASCULAR: No murmur. LUNGS: Distant, clear. ABDOMEN: Bowel sounds positive. Nontender. Nondistended. EXTREMITIES: No cyanosis or edema. NEUROLOGIC: The patient moves all extremities Laboratory Tests Test 11/03/18 05:17 White Blood Count 6.0 K/UL (4.8-10.8) Red Blood Count 4.63 M/UL (4.70-6.10) L Hemoglobin 14.6 G/DL (14.2-18.0) Hematocrit 43.7 % (42.0-52.0) Mean Corpuscular Volume 95 FL (80-99) Mean Corpuscular Hemoglobin 31.5 PG (27.0-31.0) H Mean Corpuscular Hemoglobin Concent 33.3 G/DL (32.0-36.0) Red Cell Distribution Width 12.2 % (11.6-14.8) Platelet Count 188 K/UL (150-450) Mean Platelet Volume 6.3 FL (6.5-10.1) L Neutrophils (%) (Auto) 62.3 % (45.0-75.0) Lymphocytes (%) (Auto) 25.3 % (20.0-45.0) Monocytes (%) (Auto) 9.9 % (1.0-10.0) Eosinophils (%) (Auto) 1.8 % (0.0-3.0) Basophils (%) (Auto) 0.8 % (0.0-2.0) Sodium Level 139 MMOL/L (136-145) Potassium Level 4.1 MMOL/L (3.5-5.1) Chloride Level 105 MMOL/L (98-107) Carbon Dioxide Level 26 MMOL/L (21-32) Anion Gap 8 mmol/L (5-15) Blood Urea Nitrogen 22 mg/dL (7-18) H Creatinine 1.0 MG/DL (0.55-1.30) Estimat Glomerular Filtration Rate > 60 mL/min (>60) Glucose Level 106 MG/DL (74-106) Calcium Level 9.0 MG/DL (8.5-10.1) Troponin I 0.000 ng/mL (0.000-0.056) Current Medications Medications (Trade) Dose Ordered Sig/Birdie Route PRN Reason Start Time Stop Time Status Last Admin Dose Admin Acetaminophen (Tylenol) 650 mg Q4H PRN ORAL T>100.5 11/01/18 09:15 12/01/18 09:14 Albuterol/ Ipratropium (Albuterol/ Ipratropium) 3 ml Q4H PRN HHN Shortness of Breath 11/01/18 09:15 11/06/18 09:14 Amiodarone HCl (Cordarone) 200 mg TWICE A DAY ORAL 11/01/18 18:00 12/01/18 17:59 11/02/18 17:33 Apixaban (Eliquis) 5 mg BID ORAL 11/02/18 22:45 12/02/18 22:44 11/03/18 08:32 Aspirin (ASA) 81 mg DAILY ORAL 11/03/18 09:00 12/03/18 08:59 11/03/18 08:31 Atorvastatin Calcium (Lipitor) 10 mg BEDTIME ORAL 11/03/18 21:00 12/03/18 20:59 Carvedilol (Coreg) 6.25 mg EVERY 12 HOURS ORAL 11/01/18 21:00 12/01/18 20:59 Cyclosporine (Neoral) 50 mg BEDTIME ORAL 11/01/18 21:00 12/01/18 20:59 11/02/18 21:21 Cyclosporine (SandIMMUNE) 100 mg BEDTIME ORAL 11/01/18 21:00 12/01/18 20:59 11/02/18 21:21 Diltiazem HCl (Cardizem) 10 mg EVERY HOUR PRN IV heart rate more than 120bpm 11/01/18 09:15 12/01/18 09:14 Enalaprilat (Vasotec) 2.5 mg Q6H PRN IV SBP > 160mmHg 11/01/18 09:15 12/01/18 09:14 Ketorolac Tromethamine (Toradol 30mg) 30 mg Q6H PRN IV Moderate Pain (Pain Scale 4-6) 11/01/18 09:15 11/06/18 09:14 Morphine Sulfate (Morphine Sulfate) 2 mg Q4H PRN IVP Severe Pain (Pain Scale 7-10) 11/01/18 09:15 11/08/18 09:14 Mycophenolate Mofetil (Cellcept) 750 mg QHS ORAL 11/02/18 21:00 12/02/18 20:59 11/02/18 21:22 Nitroglycerin (Ntg) 0.4 mg Q5MIN X 3 DOSES PRN SL Prn Chest Pain 11/01/18 09:15 12/01/18 09:14 Ondansetron HCl (Zofran) 4 mg Q6H PRN IVP Nausea & Vomiting 11/01/18 09:15 12/01/18 09:14 Polyethylene Glycol (Miralax) 17 gm DAILYPRN PRN ORAL Constipation 11/01/18 09:15 12/01/18 09:14 11/02/18 18:07 Prednisone (predniSONE) 5 mg DAILY ORAL 11/02/18 09:00 12/02/18 08:59 11/03/18 08:32 Simethicone (Mylicon) 80 mg QID PRN ORAL GAS PAIN 11/03/18 11:30 12/03/18 11:29 Temazepam (Restoril) 15 mg HSPRN PRN ORAL Insomnia 11/01/18 21:00 11/08/18 20:59 Shelli Mccall M.D. Nov 03, 2018 12:30
--- NOTE | 2018-11-03 14:04 | General Progress Note ---
Assessment/Plan Problem List: (1) UTI (urinary tract infection) ICD Codes: N39.0 - Urinary tract infection, site not specified SNOMED: 30365999 (2) ACS (acute coronary syndrome) ICD Codes: I24.9 - Acute ischemic heart disease, unspecified SNOMED: 721294774 Status: stable, progressing Assessment/Plan pt diet abx bp bs control dc if clear Subjective Constitutional: Reports: weakness Allergies: Coded Allergies: No Known Allergies (Unverified , 03/26/16) All Systems: reviewed and negative except above Subjective calm in bed Objective Last 24 Hour Vital Signs Date Time Temp Pulse Resp B/P (MAP) Pulse Ox O2 Delivery O2 Flow Rate FiO2 11/03/18 09:00 Room Air 11/03/18 08:40 54 151/83 11/03/18 08:39 61 16 Room Air 21 11/03/18 08:00 59 11/03/18 08:00 96.1 54 20 151/53 (85) 96 11/03/18 04:00 97.5 58 19 135/80 (98) 96 11/03/18 04:00 48 11/03/18 00:00 98.0 55 18 130/82 (98) 98 11/03/18 00:00 50 11/02/18 21:00 Room Air 11/02/18 21:00 52 138/65 11/02/18 20:15 52 16 Room Air 21 11/02/18 20:00 52 11/02/18 20:00 98.1 52 20 138/65 (89) 95 11/02/18 16:00 58 Intake and Output 11/02/18 11/03/18 18:59 06:59 Intake Total 820 ml Balance 820 ml Intake Oral 820 ml # Voids 2 1 # Bowel Movements 1 Laboratory Tests 11/03/18 05:17: White Blood Count 6.0, Red Blood Count 4.63L, Hemoglobin 14.6, Hematocrit 43.7, Mean Corpuscular Volume 95, Mean Corpuscular Hemoglobin 31.5H, Mean Corpuscular Hemoglobin Concent 33.3, Red Cell Distribution Width 12.2, Platelet Count 188, Mean Platelet Volume 6.3L, Neutrophils (%) (Auto) 62.3, Lymphocytes (%) (Auto) 25.3, Monocytes (%) (Auto) 9.9, Eosinophils (%) (Auto) 1.8, Basophils (%) (Auto ) 0.8, Sodium Level 139, Potassium Level 4.1, Chloride Level 105, Carbon Dioxide Level 26, Anion Gap 8, Blood Urea Nitrogen 22H, Creatinine 1.0, Estimat Glomerular Filtration Rate > 60, Glucose Level 106, Calcium Level 9.0, Troponin I 0.000 Height (Feet): 5 Height (Inches): 7.00 Weight (Pounds): 160 General Appearance: alert EENT: normal ENT inspection Neck: normal alignment Cardiovascular: normal peripheral pulses, normal rate, regular rhythm Respiratory/Chest: chest wall non-tender, lungs clear, normal breath sounds Abdomen: normal bowel sounds, non tender, soft Extremities: normal inspection Edema: no edema noted Arm (L), no edema noted Arm (R), no edema noted Leg (L), no edema noted Leg (R), no edema noted Pedal (L), no edema noted Pedal (R), no edema noted Generalized Neurologic: responsive, motor weakness Skin: normal pigmentation, warm/dry Paul Bolivar DO Nov 03, 2018 14:04
[2018-11-03 16:00] VITALS: BP 140/80
--- NOTE | 2018-11-03 16:06 | NUR ---
NURSE NOTES: left a message to dr zacarias if patient is clear for dc today.awaits callback and new order.
[2018-11-03] MEDS ORDERED: CELLCEPT250 MG ORAL (17:58)
--- NOTE | 2018-11-03 18:15 | NUR ---
NURSE NOTES: patient was discharged to [facility] per md order. med recon done. to see primary md within a aweek after discharge. via a private vehicle. iv line removed and bleeding was stopped. farmworker rice removed. belongings checked and signed. patient left with . patient is stable.
[2018-11-03] MEDS ORDERED: Atorvastatin 20mg tab ORAL SCH (21:00)
--- NOTE | 2018-11-03 23:58 | Cardiology Progress Note ---
Assessment/Plan Assessment/Plan 1. Sinus bradycardia, most likely due to amiodarone. This patient has not shown any evidence of arrhythmia ever since arrival to this facility. 2. Paroxysmal atrial fibrillation. We will continue amiodarone and apixaban. 3. Chest pain/abdominal pain, most likely noncardiac. The patient request to have GI workup, 12-lead electrocardiogram does not show any ischemic changes. Acute myocardial infarction is ruled out. We will continue with aspirin. 4. History of hypertension. We will continue with lisinopril and carvedilol. 5. End-stage renal disease status post renal transplant with normal renal function. Continue prednisolone and mycophenolate mofetil. 6. History of stroke/transient ischemic attack. Again, aspirin and rosuvastatin. I would like to give rosuvastatin 10 mg nightly for better goal of LDL less than 70. Subjective Subjective Sinus bradycardia at rate of 51. Objective Last 24 Hour Vital Signs Date Time Temp Pulse Resp B/P (MAP) Pulse Ox O2 Delivery O2 Flow Rate FiO2 11/03/18 16:00 97.7 51 18 140/80 (100) 80 11/03/18 15:59 53 11/03/18 12:00 97.2 54 18 139/81 (100) 96 11/03/18 12:00 53 11/03/18 09:00 Room Air 11/03/18 08:40 54 151/83 11/03/18 08:39 61 16 Room Air 21 11/03/18 08:00 59 11/03/18 08:00 96.1 54 20 151/53 (85) 96 11/03/18 04:00 97.5 58 19 135/80 (98) 96 11/03/18 04:00 48 11/03/18 00:00 98.0 55 18 130/82 (98) 98 11/03/18 00:00 50 Intake and Output 11/02/18 11/03/18 19:00 07:00 Intake Total 820 ml Balance 820 ml Intake Oral 820 ml # Voids 2 1 # Bowel Movements 1 2D Echo: LVEF 55%, Mild LVH, Grade I LVDD, RVSP 8 mmHg Laboratory Tests Test 11/03/18 05:17 White Blood Count 6.0 K/UL (4.8-10.8) Red Blood Count 4.63 M/UL (4.70-6.10) L Hemoglobin 14.6 G/DL (14.2-18.0) Hematocrit 43.7 % (42.0-52.0) Mean Corpuscular Volume 95 FL (80-99) Mean Corpuscular Hemoglobin 31.5 PG (27.0-31.0) H Mean Corpuscular Hemoglobin Concent 33.3 G/DL (32.0-36.0) Red Cell Distribution Width 12.2 % (11.6-14.8) Platelet Count 188 K/UL (150-450) Mean Platelet Volume 6.3 FL (6.5-10.1) L Neutrophils (%) (Auto) 62.3 % (45.0-75.0) Lymphocytes (%) (Auto) 25.3 % (20.0-45.0) Monocytes (%) (Auto) 9.9 % (1.0-10.0) Eosinophils (%) (Auto) 1.8 % (0.0-3.0) Basophils (%) (Auto) 0.8 % (0.0-2.0) Sodium Level 139 MMOL/L (136-145) Potassium Level 4.1 MMOL/L (3.5-5.1) Chloride Level 105 MMOL/L (98-107) Carbon Dioxide Level 26 MMOL/L (21-32) Anion Gap 8 mmol/L (5-15) Blood Urea Nitrogen 22 mg/dL (7-18) H Creatinine 1.0 MG/DL (0.55-1.30) Estimat Glomerular Filtration Rate > 60 mL/min (>60) Glucose Level 106 MG/DL (74-106) Calcium Level 9.0 MG/DL (8.5-10.1) Troponin I 0.000 ng/mL (0.000-0.056) Objective HEENT: Atraumatic and normocephalic. Anicteric. Pupils are equal, round, and reactive to light and accommodation. Extraocular muscles intact. NECK: JVP less than 5 cm. No carotid bruits. Carotid upstrokes 2+. CARDIOVASCULAR: Normal S1, S2. Regular rate and rhythm. Bradycardic. No murmurs, gallops, or rubs. LUNGS: Clear to auscultation bilaterally. ABDOMEN: Soft, nontender, and nondistended. No hepatosplenomegaly. Positive bowel sounds. EXTREMITIES: No evidence of edema, clubbing, or cyanosis. Adrian Segura MD Nov 03, 2018 23:58
--- NOTE | 2018-11-04 01:29 | Cardiology Report ---
APPROVED REPORT EKG Measurement Heart [id number] Sinus bradycardia Nonspecific intraventricular conduction delay Borderline ECG
--- NOTE | 2018-11-05 14:36 | Discharge Summary ---
Discharge Summary Discharge Summary _ DATE OF ADMISSION: 11/01/2018 DATE OF DISCHARGE: 11/03/2018 DISCHARGED BY: Dr. Bolivar REASON FOR ADMISSION: 62 years old male with past medical history of hypertension, myocardial infarction, CVA, bilateral kidney transplant about 15 years ago, presented to emergency department complaining of chest pain. According to patient's , patient had indigestion symptoms for the last few days, but recently started to complain about chest pain, which he described as sharp, 7 out of 10, nonradiating. Patient was given aspirin and nitroglycerin by paramedics with some improvement in pain. Upon evaluation patient was bradycardic with heart rate 54 Blood pressure was elevated 156/92. Laboratory workup revealed no leukocytosis ,stable hemoglobin and hematocrit. Troponin - 0.002 EKG revealed sinus bradycardia, no acute ischemic changes. ProBNP 142. Stable electrolytes, BUN 27 creatinine 1.2. Chest x-ray revealed no acute cardiopulmonary pathology. Patient admitted to telemetry floor for further management. CONSULTANTS: live in companion Dr. Farias pulmonary Dr. Hanks ID specialist Dr. Sevilla GI specialist Dr. Wolfe senior reliability engineer Dr. Wilde [facility]SE: Patient admitted to telemetry floor. Serial troponin were negative. EKG revealed no acute ischemic changes. Patient was ruled out for acute PA. Echocardiogram revealed preserved ejection fraction 55% with mild left ventricular hypertrophy. No evidence of wall motion abnormality. Right ventricular systolic pressure of 8. According to live in companion, chest pain was most likely noncardiac. Blood pressure was managed with JOLLY inhibitor and beta-vitaliy, and remained stable. Patient demonstrated evidence of sinus bradycardia, most likely due to amiodarone. No evidence of arrhythmia since arrival to the facility. Due to history of paroxysmal atrial fibrillation amiodarone was continued along with apixaban for antiembolic prophylaxis. Due to history of stroke live in companion recommended to continue aspirin. Lipid panel revealed LDL of 84. Saw Tailer added low-dose of statin to bring LDL below 70. Supplemental oxygen provided as needed to keep pulse oximetry above 92%. Pulmonary toilet was on board as needed. Pulse oximetry was stable on room air, no evidence of respiratory distress. GI consult was requested due to recent indigestion problems consisted of epigastric pain with nausea and vomiting. GI seen and evaluated patient. At time of evaluation abdominal pain already resolved. Symptomatic treatment provided. Patient started on symptomatic treatment with simethicone as needed and Zofran as needed. GI specialist recommended outpatient endoscopy to evaluate the cause of abdominal pain. Also initial screening colonoscopy was recommended. Security Attendant seen patient. Renal parameters remained stable. Antirejection medication were continued. Patient was strictly advised to avoid nonsteroidal anti-inflammatory medication. Infectious disease doctor seen the patient for epigastric pain, nausea and vomiting, likely gastritis, which resolved. Patient remained afebrile Laboratory workup revealed no leukocytosis. No evidence of infectious process. Infectious disease doctor recommended to monitor patient off antibiotic and continue with supportive treatment. Patient clinically stabilized and was ready for discharge home. FINAL DIAGNOSES: Noncardiac chest pain Hypertension Sinus bradycardia Paroxysmal atrial fibrillation History of cadaveric renal transplant Dyslipidemia Epigastric pain with nausea and vomiting, likely gastritis DISCHARGE MEDICATIONS: See Medication Reconciliation list. DISCHARGE INSTRUCTIONS: He was discharged home. Follow-up with a primary care provider in one week for referral to endoscopy and colonoscopy. I have been assigned to dictate discharge summary for this account. I was not involved in the patient's management. Gely Breaux NP Nov 05, 2018 14:36
--- NOTE | 2018-11-17 16:20 | Physician Query ---
--------- THIS DOCUMENT IS A PERMANENT PART OF THE MEDICAL RECORD --------- PLEASE COMPLETE THE DOCUMENT BEFORE SIGNING Dear Dr. CRISTELA NGUYEN Date: 11/17/18 Supply Tech/CDS' Name -HAROON WALDRON, DAKOTAH, SYSTEMS ENG Exercise your independent professional judgment when responding to query. Questions asked do not imply particular answer is desired or expected. We greatly appreciate your clarification on this issue. HOSPITAL COURSE: Patient admitted to telemetry floor. Serial troponin were negative. EKG revealed no acute ischemic changes. Patient was ruled out for acute NH. Echocardiogram revealed preserved ejection fraction 55% with mild left ventricular hypertrophy. No evidence of wall motion abnormality. Right ventricular systolic pressure of 8. According to ham passer, chest pain was most likely noncardiac. Blood pressure was managed with JOLLY inhibitor and beta-vitalyi, and remained stable. Patient demonstrated evidence of sinus bradycardia, most likely due to amiodarone. No evidence of arrhythmia since arrival to the facility. Please document the suspected etiology of Chest Pain: a.Type: []Cardiac []Non-cardiac []Unspecified b.Etiology - cardiac [] Aortic dissection []Mitral valve prolapsed [] Acute myocardial infarction []Spasm of coronary arteries [] Coronary Artery Disease []Pericarditis c.Etiology - non-cardiac [] Anxiety []Pleurisy [] Cancer []Pneumonia, type [] Costochondritis []Pneumothorax [] GERD/Esophagitis []Pulmonary embolism [] Unable to determine []Other: CRISTELA NGUYEN D.O. DATE [facility]
== END 2018-11-03 19:16 | disposition home or self-care (01) | DRG 243 ==
LOC: EDBD 03:47 → EMR 05:02 → EDBEDREQ 08:09 → 2E 08:46
DX: K21.9 Gastro-esophageal reflux disease without esophagitis (principal); I48.0 Paroxysmal atrial fibrillation; R07.89 Other chest pain; I25.10 Atherosclerotic heart disease of native coronary artery without angina pectoris; Z94.0 Kidney transplant status; E11.9 Type 2 diabetes mellitus without complications; I25.2 Old myocardial infarction; I10 Essential (primary) hypertension; R00.1 Bradycardia, unspecified; T46.2X5A Adverse effect of other antidysrhythmic drugs, initial encounter; E78.5 Hyperlipidemia, unspecified; K29.70 Gastritis, unspecified, without bleeding; Z79.82 Long term (current) use of aspirin; Z86.73 Personal history of transient ischemic attack (TIA), and cerebral infarction without residual deficits; N39.0 Urinary tract infection, site not specified
CPT/HCPCS: 36415; 71045; 80048; 80053; 80061; 81001; 82043; 82044; 82248; 82550; 82553; 82570; 83880; 84300; 84443; 84484; 85007; 85025; 85610; 85730; 86140; 89050; 93005; 93306; 94664; 96374; 99285